=== PATIENT | male | born 1965 | race Caucasian/White ===

== ENCOUNTER 2021-12-22 08:03 | Inpatient (IN) | payer MEDICAID, SELFPAY ==
[2021-12-22] VITALS (26 sets, daily range): BP systolic 100–148; BP diastolic 56–84; PULSE 87–137; RESP 14–22; TEMP 36.2–37.2; O2SAT 92–98; BMI 29.2
[2021-12-22] MEDS: sodium chloride 0.9% 1,000 ML 999 ML IV (08:35)
--- NOTE | 2021-12-22 08:36 | CT_ITS ---
WS: [id number] CT ABDOMEN AND PELVIS WITH CONTRAST HISTORY: Low abdominal pain, nausea, vomiting and diarrhea for 3 days. TECHNIQUE: Imaging performed of the abdomen and pelvis with IV contrast. Single phase imaging of the abdomen. Coronal and sagittal reformats are submitted. All CT scans at [facility] use at [address] one of these dose optimization techniques: automated exposure control; mA and/or kV adjustment per patient size (includes targeted exams where dose is matched to clinical indication); or iterative re construction. IV CONTRAST: Omnipaque 350; 100 mL IV. Oral contrast: No DLP: 633.96 mGy.cm COMPARISON: None available. Lower thorax: Hyperexpanded lungs with emphysema. Heart is normal size. Moderate size hiatal hernia. Liver/biliary system: Normal size liver. No bile duct dilatation. Portal vein normally enhancing. Gallbladder: Normally distended gallbladder There is a small stone or polyp or redundant fold involving the base of the gallbladder. Pancreas: Normal size pancreas and pancreatic duct. No adjacent inflammation. Spleen: 13.1 cm in length. No mass. Adrenal glands: Normal. Right kidney: Normal. Left kidney: Normal. Aorta: Mild atherosclerosis with no aneurysm. SMA and celiac axis are patent. Lymphadenopathy: Small shoddy retroperitoneal lymph nodes. Free fluid: Small amount of free fluid adjacent to the liver and spleen and extending along the parac olic gutters into the pelvis. GI tract: Moderately well distended stomach. There is no small bowel obstruction. There is high densi ty contrast within the GI tract which may be medicinal. Extensive distal sigmoid wall thickening with numerous diverticula. Edematous changes and findings of acute diverticulitis. Focal perforation note d along the medial sigmoid colon. There is an air tract extending through the mucosa and submucosa of the sigmoid. Phlegmonous collection containing air measures 6.5 x 4.3 cm in the pelvis. This is just medial to the sigmoid colon. This is surrounded by small bowel, sigmoid colon and partially encased by the urinary bladder. There is extensive soft tissue inflammation in the pelvis surrounding the sma ll bowel and colon. The inflammatory changes extend to involve the distal small bowel. This is probab ly secondary reaction to the inflammation and phlegmon. Additional hyperemic changes involving the s mall bowel. May be a secondary enteritis. Ischemic changes also should be considered. Similar finding s in the ascending colon. Appendix is not identified. Abdominal wall: Unremarkable abdominal wall. No hernia. Pelvis: Small amount of free fluid in the pelvis. Extensive inflammatory changes within the soft tiss ues of the pelvis surrounding the GI tract. Bones: Unremarkable. CT/CT abdomen pelvis w con* [id number] IMPRESSION: 1. Severe acute sigmoid diverticulitis with a focal perforation along the medi al sigmoid. There is an adjacent phlegmon along the medial sigmoid colon at the level of the perforation containing air. No abscess at this time. 2. There is small foci of air along the lateral sigmoid which may be free air or air within diverticula. These foci of air are also within the segment of acu te diverticulitis. 3. There is extensive hyperemic changes involving large portions of the distal small bowel and the colon. Probably reactive from inflammatory process and sig moid diverticula perforation. 4. Small amount of ascites throughout the abdomen and pelvis. 5. Bladder wall thickening, probably reactive from the adjacent interloop deve loping abscess. 6. The appendix is not definitely identified. Could be secondarily involved. Notified Obi Brandon DO at 12/22/2021 9:32 AM.
[2021-12-22 08:40] LABS: Basophils % 0.2 %; Hematocrit 43.8 % (42.0-52.0); Hemoglobin 15.4 g/dL (11.7-16.6); Lymphocytes # 0.7 10^3/uL (0.8-4.8); Lymphocytes % 5.8 %; Mean Corpuscular HGB Conc 35.2 g/dL (30.0-36.0); Mean Corpuscular Hemoglobin 30.1 pg (28.0-34.0); Mean Corpuscular Volume 85.5 fl (80-94); Mean Platelet Volume 9.7 fL (7.4-10.4); Monocytes # 0.6 10^3/uL (0.2-0.9); Monocytes % 4.5 %; Neutrophils # 11.12 10^3/uL (1.8-7.7); Neutrophils % 88.6 %; Nucleated Red Blood Cells % 0 %; Platelet Count 185 10^3/cmm (130-400); Red Blood Count 5.12 10^6/uL (4.1-5.3); Red Cell Distribution Width 13.2 % (12.1-15.1); White Blood Count 12.6 10^3/uL (4.0-10.0)
[2021-12-22] MEDS: iohexol 350 mg/mL 100 mL Btl IV (08:47)
--- NOTE | 2021-12-22 08:55 | W.ED.ABDPA2 ---
HPI - Abdominal Pain General: Chief Complaint: Abdominal Pain Stated Complaint: N/V abd pain Time Seen by Provider: 12/22/21 08:15 Source: patient Mode of arrival: ambulatory History of Present Illness: 56-year-old male presents emergency room with complaints of abdominal pain that began 2 days ago progressively worsening worse with any kind of movement he localizes all the pain to the right lower quadrant has not had any vomiting but very nauseous he has had some loose stools he is tried some Pepto-Bismol for which she is noted to turn the stools black but is not had any hematemesis or coffee-ground emesis that is identified. He denies fever sweats or chills. No previous abdominal surgeries no significant past medical issues. MD elicited complaint: abdominal pain Pertinent past history: none Onset (ago): day(s) (2) Pain Consistency: constant Location: RLQ Severity: severe Quality: sharp Radiation: none Migration to: no migration Exacerbating factors: movement Relieving factors: rest Associated Symptoms: Reports GI cramping, diarrhea and poor appetite; Denies anorexia, belching, bloating, change in bowel habits, change in stool character, chills, coffee ground emesis, constipation, dyspepsia, dysuria, excessive flatus, fever(s), heartburn, hematochezia, hematuria, hematemesis, fecal incontinence, loose stools, melena, nausea, syncope and vomiting Review of Systems Const: Denies: fever(s) or chills Card: Denies: chest pain, palpitations, irregular heart rhythm or syncope GI: Reports: abdominal pain, diarrhea and GI cramping; Denies: nausea, vomiting, hematemesis, coffee ground emesis, heartburn, constipation, bloating, belching, excessive flatus, fecal incontinence, change in bowel habits, change in stool character, hematochezia or melena : Denies: flank pain, difficulty urinating, dysuria, urinary frequency, urinary urgency or hematuria PFSH ED PFSH: Surgical History (Updated 12/22/21 @ 09:01 by Obi Brandon DO) No pertinent past surgical history Social History Smoking and tobacco status: current every day smoker Physical Exam Const: GENERAL APPEARANCE: cooperative and comfortable ORIENTATION/CONSCIOUSNESS: Yes awake, Yes oriented to person, Yes oriented to place and Yes oriented to time HENMT: COMMON NORMALS: normocephalic, atraumatic and hearing grossly normal bilaterally HEAD & SCALP: normocephalic and atraumatic Lymph: LYMPHATIC: no lymphadenopathy noted and no lymphedema noted Resp: COMMON NORMALS: normal respiratory effort, No retractions, No use of accessory muscles and clear to auscultation bilaterally AUSCULTATION: clear to auscultation bilaterally Cardio: COMMON NORMALS: regular rate, regular rhythm and No murmurs present (Cardio) RATE: regular rate RHYTHM: regular rhythm GI: COMMON NORMALS: No hepatosplenomegaly present AUSCULTATION: Yes normoactive bowel sounds PALPATION: Yes Tenderness to palpation present (GI), Yes Guarding due to palpation present (GI) in the RLQ and Yes No hepatosplenomegaly present Extremity: COMMON NORMALS: normal to inspection, capillary refill normal, no clubbing, cyanosis or edema, no calf tenderness and no pedal edema Neuro: SENSORIUM/ORIENTATION: Yes oriented to person, Yes oriented to place and Yes oriented to time Skin: COMMON NORMALS: no rashes or lesions noted GENERAL SKIN EXAM: no rashes or lesions noted Course Vital Signs: Vital signs: Vital Signs Temperature 98.0 F 12/22/21 08:23 Pulse Rate 128 H 12/22/21 09:45 Respiratory Rate 21 H 12/22/21 09:59 Blood Pressure 100/83 12/22/21 09:45 Pulse Oximetry 95 12/22/21 09:45 Oxygen Delivery Me thod 12/22/21 08:23 MDM - Abdominal Pain Medical Decision Making Patient has perforated sigmoid diverticulitis. It is acute abdomen with peritonitis. Discussed with on-call surgery. I have started Zosyn Dr. Mays asked that we add metronidazole which we have ordered. He is tachycardic and mildly hypotensive he has been given a sepsis fluid bolus along with the antibiotics he is currently awake and alert. Surgery has come to take him to the operating room Dr. Mays will see him in preop. Medical Records I reviewed the patient's medical records. Lab Data I reviewed the patient's lab results. : 12/22/21 08:30 12/22/21 08:30 Labs/Radiology: Radiology Impressions Abdomen/Pelvis CT 12/22/21 08:36 IMPRESSION: 1. Severe acute sigmoid diverticulitis with a focal perforation along the medial sigmoid. There is an adjacent phlegmon along the medial sigmoid colon at the level of the perforation containing air. No abscess at this time. 2. There is small foci of air along the lateral sigmoid which may be free air or air within diverticula. These foci of air are also within the segment of acute diverticulitis. 3. There is extensive hyperemic changes involving large portions of the distal small bowel and the colon. Probably reactive from inflammatory process and sigmoid diverticula perforation. 4. Small amount of ascites throughout the abdomen and pelvis. 5. Bladder wall thickening, probably reactive from the adjacent interloop developing abscess. 6. The appendix is not definitely identified. Could be secondarily involved. Notified Obi Brandon DO at 12/22/2021 9:32 AM. Laboratory Results WBC 12.6 10^3/uL (4.0-10.0) H 12/22/21 08:30 RBC 5.12 10^6/uL (4.1-5.3) 12/22/21 08:30 Hgb 15.4 g/dL (11.7-16.6) 12/22/21 08:30 Hct 43.8 % (42.0-52.0) 12/22/21 08:30 MCV 85.5 fl (80-94) 12/22/21 08:30 MCH 30.1 pg (28.0-34.0) 12/22/21 08:30 MCHC 35.2 g/dL (30.0-36.0) 12/22/21 08:30 RDW 13.2 % (12.1-15.1) 12/22/21 08:30 Plt Count 185 10^3/cmm (130-400) 12/22/21 08:30 MPV 9.7 fL (7.4-10.4) 12/22/21 08:30 Neut % (Auto) 88.6 % 12/22/21 08:30 Lymph % (Auto) 5.8 % 12/22/21 08:30 [place] % (Auto) 4.5 % 12/22/21 08:30 Eos % (Auto) 0.0 % 12/22/21 08:30 Baso % (Auto) 0.2 % 12/22/21 08:30 Neut # (Auto) 11.12 10^3/uL (1.8-7.7) H 12/22/21 08:30 Lymph # (Auto) 0.7 10^3/uL (0.8-4.8) L 12/22/21 08:30 [place] # (Auto) 0.6 10^3/uL (0.2-0.9) 12/22/21 08:30 Eos # (Auto) 0.0 10^3/uL (0.0-0.8) 12/22/21 08:30 Baso # (Auto) 0.0 10^3/uL (0.0-0.1) 12/22/21 08:30 Nucleated RBC % (auto) 0 % 12/22/21 08:30 Nucleated RBCs # 0.0 /100WBC 12/22/21 08:30 Sodium 136 mmol/L (136-145) 12/22/21 08:30 Potassium 3.7 mmol/L (3.5-5.1) 12/22/21 08:30 Chloride 97 mmol/L (98-107) L 12/22/21 08:30 Carbon Dioxide 26 mmol/L (22-29) 12/22/21 08:30 Anion Gap 16.7 (5-19) 12/22/21 08:30 BUN 12 mg/dL (6-20) 12/22/21 08:30 Creatinine 1.0 mg/dL (0.7-1.2) 12/22/21 08:30 GFR Calculation 77.3 mL/min (90-130) L 12/22/21 08:30 Glucose 154 mg/dL (65-115) H 12/22/21 08:30 Calculated Osmolality 285 mOsm/kg (285-295) 12/22/21 08:30 Calcium 8.7 mg/dL (8.5-10.5) 12/22/21 08:30 Total Bilirubin 0.9 mg/dL (0.15-1.2) 12/22/21 08:30 AST 34 U/L (0-40) 12/22/21 08:30 ALT 21 U/L (0-41) 12/22/21 08:30 Alkaline Phosphatase 77 U/L (40-130) 12/22/21 08:30 Total Protein 6.5 g/dL (6.6-8.7) L 12/22/21 08:30 Albumin 4.1 g/dL (3.5-5.2) 12/22/21 08:30 Globulin 2.4 g/dL (1.3-4.6) 12/22/21 08:30 Lipase 10 U/L (13-60) L 12/22/21 08:30 Urine Color Yellow (Yellow) 12/22/21 09:30 Urine Appearance Clear (CLEAR) 12/22/21 09:30 Urine pH 5 (5-7) 12/22/21 09:30 Ur Specific [place] 1.020 (1.005-1.030) 12/22/21 09:30 Urine Protein Neg (Negative) 12/22/21 09:30 Urine Glucose (UA) Norm (Normal) 12/22/21 09:30 Urine Ketones Negative (Negative) 12/22/21 09:30 Urine Blood Neg (Negative) 12/22/21 09:30 Urine Nitrate Negative (Negative) 12/22/21 09:30 Urine Bilirubin Neg (Negative) 12/22/21 09:30 Urine Urobilinogen Norm mg/dL (Negative) 12/22/21 09:30 Ur Leukocyte Esterase Negative (Negative) 12/22/21 09:30 Discharge Plan Discharge Patient Disposition: Admitted As Inpatient Clinical Impression: Diverticulitis of colon with perforation Condition: Stable Coding Level of Care Code ED Buggy Ladle Tender for [place] Fwd Exam Comprehensive
[2021-12-22 09:01] LABS: Alanine Aminotransferase 21 U/L (0-41); Albumin Level 4.1 g/dL (3.5-5.2); Alkaline Phosphatase 77 U/L (40-130); Anion Gap 16.7 (5-19); Aspartate Amino Transferase 34 U/L (0-40); Blood Urea Nitrogen 12 mg/dL (6-20); Calcium 8.7 mg/dL (8.5-10.5); Carbon Dioxide 26 mmol/L (22-29); Chloride 97 mmol/L (98-107); Globulin 2.4 g/dL (1.3-4.6); Glomerular Filtration Rate 77.3 mL/min (90-130); Glucose 154 mg/dL (65-115); Lipase 10 U/L (13-60); Osmolality Calculated 285 mOsm/kg (285-295); Potassium 3.7 mmol/L (3.5-5.1); Sodium 136 mmol/L (136-145); Total Bilirubin 0.9 mg/dL (0.15-1.2); Total Protein 6.5 g/dL (6.6-8.7)
[2021-12-22 09:40] LABS: Add Urine Microscopic? NO; Charge for UA Resulting for Rev
[2021-12-22 09:47] LABS: Urine Color Yellow (Yellow)
[2021-12-22 09:48] LABS: Bilirubin Urine Neg (Negative); Blood Urine Neg (Negative); Glucose Urine UA Norm (Normal); Ketones Urine Negative (Negative); Leukocyte Esterase Urine Negative (Negative); Nitrate Urine Negative (Negative); Protein Urine Neg (Negative); Urine Appearance Clear (CLEAR); Urobilinogen Urine Norm (Negative); pH Urine 5 (5-7)
[2021-12-22] MEDS: piperacillin-tazobactam 4.5 GM in sodium chloride 0.9% (plus) 50 ML IV (09:58)
[2021-12-22] MEDS: morphine 4 mg/mL SDV 1 mL 6 MG IVP (09:59)
[2021-12-22] MEDS: promethazine 25 mg/mL SDV 1 mL IM (09:59)
--- NOTE | 2021-12-22 09:59 | PC.NURSE ---
bedside report given to surgery RN. Patient escorted to surgery by RN. Family at bedside.
[2021-12-22 10:06] LABS: Lactic Sepsis W/Reflex 1.5 mmol/L (0.5-2.2)
--- NOTE | 2021-12-22 10:28 | P.ANESASSM_ITS ---
Pre-Anesthetic Assessment Height/Weight: Height 1.93 m Weight 108.862 kg Temp Pulse Resp BP Pulse Ox O2 Del Method 98.0 F 128 H 21 H 100/83 95 12/22/21 08:23 12/22/21 09:45 12/22/21 09:59 12/22/21 09:45 12/22/21 09:45 12/22/21 08:23 Operation Date: 12/22/21 10:45 Proposed Procedures p Laparoscopy Diagnostic(Not Applicable) - Sreekanth Mays MD Familial anesthetic complications: none Was Beta Mihaela taken within 24 hours: N/A Was Clonidine taken within 24 hours: N/A Last intake: Intake Last Liquid Date 12/22/21 Last Liquid Time 05:00 Last Solid Date 12/21/21 Last Solid Time 17:00 Social Tobacco and No alcohol Exam alert, oriented x 3 and regular rate & rhythm Airway Submandibular: within normal limits Cervical ROM: within normal limits Mallampati: Class II Dentition: chipped Pulmonary Chronic Obstructive Pulmonary Disease GI acute abdomen Anesthetic Plan ASA status: 2E Anesthesia: General (RSI) Medications/Allergies Home Medications Medication Instructions Recorded Confirmed Last Taken Type No Known Home Medications 12/22/21 12/22/21 Unknown History Allergies Allergy/AdvReac Type Severity Reaction Status Date / Time No Known Allergies Allergy Verified 12/22/21 09:36 [facility] Anesthesia Surgical History (Updated 12/22/21 @ 09:01 by Obi Brandon DO) No pertinent past surgical history Social History Smoking and tobacco status: current every day smoker Data Anesthesia : 12/22/21 08:30 12/22/21 08:30 Short CBC 12/22/21 Range/Units 08:30 WBC 12.6 H (4.0-10.0) 10^3/uL Hgb 15.4 (11.7-16.6) g/dL Hct 43.8 (42.0-52.0) % MCV 85.5 (80-94) fl Plt Count 185 (130-400) 10^3/cmm Neut % (Auto) 88.6 % Neut # (Auto) 11.12 H (1.8-7.7) 10^3/uL BMP 12/22/21 08:30 Sodium 136 Potassium 3.7 Chloride 97 L Carbon Dioxide 26 BUN 12 Creatinine 1.0 Glucose 154 H Calcium 8.7 Liver Function 12/22/21 Range/Units 08:30 Total Bilirubin 0.9 (0.15-1.2) mg/dL AST 34 (0-40) U/L ALT 21 (0-41) U/L Alkaline Phosphatase 77 (40-130) U/L Albumin 4.1 (3.5-5.2) g/dL Urine 12/22/21 Range/Units 09:30 Urine Color Yellow (Yellow) Urine Appearance Clear (CLEAR) Urine pH 5 (5-7) Ur Specific [place] 1.020 (1.005-1.030) Urine Protein Neg (Negative) Urine Glucose (UA) Norm (Normal) Urine Ketones Negative (Negative) Urine Nitrate Negative (Negative) Urine Bilirubin Neg (Negative) Ur Leukocyte Esterase Negative (Negative) Microbiology 12/22/21 09:43 Blood Culture - Preliminary Blood SPECIMEN COLLECTED 12/22/21 09:38 Blood Culture - Preliminary Blood SPECIMEN COLLECTED Cardiac Studies: No Data to Display
[2021-12-22] MEDS: metroNIDAZOLE IV 500 MG/100 ML PREMIX 100 MG IV ×2 (10:30→19:15)
[2021-12-22] MEDS: sodium chloride 0.9% 1,000 ML 30 ML IV (10:42)
--- NOTE | 2021-12-22 10:44 | PM.HP ---
Providers/Chief Complaint Admitting Physician: Sreekanth Mays MD Primary Care Provider: YVAN Davey Chief Complaint: N/V/D abd pain History of Present Illness Mr. Stephen Izquierdo is a pleasant 56 year old male resents to the emergency department with worsening abdominal pain since last Wednesday, being sharp in nature mostly towards the lower abdomen. No nausea or vomiting or fevers or chills or jaundice. Nothing seems to make it better except morphine when he was given in the ER. Otherwise pain has been getting worse and when he came to the ER further work-up was done that did show WBC count of 12.6, hemoglobin 15.4 and hematocrit 43.8. Actiq acid 1.5. Lecture lites are normal. Except for chloride 97. Albumin 4.1. Patient undergone a CT of the pelvis that did show 1.? Severe acute sigmoid diverticulitis with a focal perforation along the medial sigmoid. There is an adjacent phlegmon along the medial sigmoid colon at the level of the perforation containing air. No abscess at this time. 2.? There is small foci of air along the lateral sigmoid which may be free air or air within diverticula. These foci of air are also within the segment of acute diverticulitis. 3.? There is extensive hyperemic changes involving large portions of the distal small bowel and the colon. Probably reactive from inflammatory process and sigmoid diverticula perforation. 4.? Small amount of ascites throughout the abdomen and pelvis. 5.? Bladder wall thickening, probably reactive from the adjacent interloop developing abscess. 6.? The appendix is not definitely identified. Could be secondarily involved. Never had a colonoscopy before. General surgery was consulted for further evaluation management Review of Systems General: Reports: 10 or more systems reviewed and unremarkable except in HPI and below Medications/Allergies Home Medications Medication Instructions Recorded Confirmed Last Taken Type No Known Home Medications 12/22/21 12/22/21 Unknown History Allergies Allergy/AdvReac Type Severity Reaction Status Date / Time No Known Allergies Allergy Verified 12/22/21 10:52 PFSH Acute PFSH: Surgical History No pertinent past surgical history Social History Smoking and tobacco status: current every day smoker Vitals/I&O/Wt Last Vital Signs Temp 98.9 F 12/22/21 10:10 Pulse 137 H 12/22/21 10:10 Resp 20 H 12/22/21 10:10 BP 148/69 12/22/21 10:10 Pulse Ox 95 12/22/21 10:10 O2 Del Method 12/22/21 10:10 12/21/21 12/22/21 12/22/21 22:59 06:59 14:59 Intake Total 1050 / 1050 Balance 1050 / 1050 Weight last 48 hrs Weight 240 lb Physical Exam Narrative: Patient is conscious alert oriented X3 No apparent distress BMI 29.2 Head and neck examination PERRLA no masses no cervical lymphadenopathy no jaundice Cardiac examination audible S1-S2 no murmurs no gallops no arrhythmias Chest is clear bilateral,abscence of Rhonchi or wheezes,no surgical emphysema Abdomen tender nondistended soft no organomegaly presence of guarding and rigiditis w signs of peritonitis particularly the lower abdomen Extremities no cyanosis no clubbing no edema Data : 12/22/21 08:30 12/22/21 08:30 Micro: Microbiology 12/22/21 09:43 Blood Culture - Preliminary Blood SPECIMEN COLLECTED 12/22/21 09:38 Blood Culture - Preliminary Blood SPECIMEN COLLECTED A&P Assessment and plan (1) Diverticulitis of colon with perforation: After thorough history physical examination and reviewing the chart and images with my personal interpretation.I counseled the patient for diagnostic laparoscopy possible laparotomy with bowel resection and possible colostomy. Details and risks of the procedure were carefully and openly discussed. Risks reviewed include the possibility of , stroke, heart attack, major bleeding, infection, pneumonia, organ failure, failure to benefit, prolonged hospital stay, pain after the procedure, may require future surgeries. Also indications, risks including but not limited to potential injury of viscera, vascular structures and/or ureters that may require conversion to open,benefits,indications and alternatives were all discussed with the patient, patient understands and is interested to proceed. Rationale was carefully and clearly discussed with the patient.Appropriate informed consent have been reviewed and signed. Attestations Medical Necessity Statement*: Patient requiring inpatient hospitalization passing 2 midnight Coding Level of Care Code Acute Surveying Or Spatial Science Technician for [facility] Diagnoses Diverticulitis of colon with perforation K57.20
[2021-12-22] MEDS: heparin 5,000 unit/mL INJ 1 mL 2000 UNIT SUBCUT (11:09)
[2021-12-22] MEDS: acetaminophen 1,000 MG/100 ML PIGGYBACK 400 MG IV (11:09)
[2021-12-22] MEDS: lidocaine 1% INJ 20 mL 10 ML SUBCUT (11:41)
--- NOTE | 2021-12-22 14:34 | P.OP_ITS ---
Operative Report Date of procedure: December 22, 2021 Pre-op diagnosis: Preop Diagnosis Sigmoid diverticulitis with perforation Procedure done: Diagnostic laparoscopy w sigmoid colon resection and colostomy. Fontenot's procedure Peritoneal lavage Repair of umbilical hernia Implants: 19 Stateless round Clifford drain Specimens removed/disposition: Umbilical hernia content Sigmoid colon resection sutures marked proximal Staple line Surgeon: Sreekanth Mays MD Registered Nurse Surgical Services: Surgical techs Ana and Antonina/Lavelle Circulating nurses Jesusita Ly and Kylee Delatorre Anesthesia: General (MADDIE Breen and Jefry) Estimated blood loss (mL): 25 IV fluids (mL): 1,400 IV fluids: 100 mL 25% albumin Urine output (mL): 270 Procedure: The patient was brought to the operating room and was placed in a supine position on the operating room table.General endotracheal anesthesia was induced.Time-out was done verifying the patient's name/date of /planned procedure and destination after the procedure, all were in agreement. SCDs confirmed to be functioning, preoperative antibiotics administered per protocol, and beta becky protocol was confirmed.Patient was appropriately secured to the table. Vu catheter was inserted revealing clear urine. The abdomen was prepped and draped in a sterile fashion. Started by longitudinal skin incision , small umbilical hernia preperitoneal fat was dissected and excised and sent for permanent pathology following that a Floers trocar technique safe entry to the abdominal cavity was achieved verified by using 10 mm zero degree laparoscopy, switched to a 30? scope, a 5 mm trocar was inserted at the right lower direct visualization, followed by a 5 mm trocar was inserted at the right upper quadrant under direct visualization. I had the patient in Trendelenburg and right side down to help exposure. Noticed to have right paracolic gutter purulent fluid as well as in the pelvic and the left paracolic gutter. Suction irrigation was applied. Inter small bowel loops fluid collection was appreciated but there was no evidence of succus or feculent material. Some lower intra-abdominal adhesions were adhesio lysed using Voyant device under direct visualization. Noticed that the patient has redundant sigmoid that was mobilized from the lateral pelvic wall through the line of Toldt. After further dissection patient was found to have a sealed perforated mid sigmoid colon by the surrounding appendices epiploicoe was appreciated with extensive inflamed sigmoid colon, decision was to perform sigmoid resection and Fontenot's procedure. Perforation estimated to be about centimeter or less in diameter. Using Voyant device I was able to take mesentery of the sigmoid colon down y et.the named vessels I elected to use white load 60 mm [place] stapler and 10 mm clips were applied as well. Appropriate orientation of retroperitoneal structures were appreciated avoiding any injury to the ureters. Mesenteric window was created using the Voyant device and an [place] 60 mm green load stapler was used to divide and creating Fontenot's pouch, before that the right lower 5 mm trocar was replaced by 12 mm trocar to allow the [place] 60 mm stapler to be introduced to the abdominal cavity and a distal sigmoid colon stapled off. Under direct visualization 2-0 Prolene was applied onto the rectal stump for future orientation. There was enough portion of the distal descending colon to create a tension-free colostomy. PDS sutures were applied to close the fascial defects using the fascial closure device. A final look laparoscopy showed no bleeding or injuries.,Suction irrigation was obtained. And hemostasis was secured. At that point a decision was done for the future stoma site at the left side of the abdomen and a skin incision was then created,dissection was carried all the way subcutaneous tissues and muscle layer, the site was wide enough to accommodate my 2 examining fingers, at that point the distal part of the descending colon was retrieved without tension via that site after application of wound protector. Division towards the proximal sigmoid colon was done using a blue load of the [place] 60 mm. And then passed to the wash driller nurse for permanent pathology with sutures marked proximal. A curved Bey was used to take the staple line off the colostomy passed to the circulating nurse for permanent pathology .At this point a 2/0 Vicryl was used circumferentially to maintain the colostomy in good position and created to the underlying fascia.I used 3-0 Vicryl at the 4 poles of the colostomy ,stitch was placed in the mucosa then seromuscular and then subdermal layer at the 4 poles,followed by interrupted sutures between the mucosa and the subdermal layer. Final look laparoscopy was achieved and copious and thorough irrigation(peritoneal lavage) using at least 5 L of warm was done followed by placement of 19 Stateless round Clifford drain towards the pelvis under direct visualization and brought about from the right upper quadrant 5 mm trocar. And anchored to the skin using 2-0 nylon. Approximation of the edges of the peritoneum laparoscopically using 2-0 Vicryl was done around the stoma site to prevent potential parastomal hernia in the future. Gas was allowed to deflate An ostomy appliance was applied now. Count of sponges, needles and instruments were completed at the end of the procedure.Patient was taken to the recovery area in stable condition after being extubated. Vu catheter was kept I was present for the whole entire procedure.
--- NOTE | 2021-12-22 16:06 | ANE.PACU2 ---
Inpatient post-anesthesia follow up: Airway intact: Yes Vital signs: Temperature 97.2 F Pulse Rate 99 Respiratory Rate 18 Blood Pressure 126/70 Pulse Oximetry 97 Oxygen Delivery Me thod Nasal Cannula Oxygen Flow Rate 2 Fraction of Inspir ed Oxygen Hydration adequate: Yes Nausea and vomiting: No Pain level: 4 Mental status: Baseline
[2021-12-22] MEDS: piperacillin-tazobactam 3.375 GM in sodium chloride 0.9% (plus) 50 ML IV ×2 (17:15→23:40)
[2021-12-22] MEDS: sodium chloride 0.9% 1,000 ML 125 ML IV (17:15)
[2021-12-22] MEDS: famotidine 20 mg/2 mL INJ IVP (20:39)
[2021-12-22] MEDS: morphine 4 mg/mL SDV 1 mL 2 MG IVP (23:47)
[2021-12-23] VITALS (16 sets, daily range): BP systolic 122–166; BP diastolic 72–82; PULSE 88–118; RESP 16–18; TEMP 36.7–37.3; O2SAT 91–94
[2021-12-23] MEDS: sodium chloride 0.9% 1,000 ML 125 ML IV ×3 (01:32→19:47)
[2021-12-23 03:42] LABS: Basophils % 0.2 %; Hematocrit 37.5 % (42.0-52.0); Hemoglobin 12.7 g/dL (11.7-16.6); Lymphocytes # 0.7 10^3/uL (0.8-4.8); Lymphocytes % 6.2 %; Mean Corpuscular HGB Conc 33.9 g/dL (30.0-36.0); Mean Corpuscular Hemoglobin 29.2 pg (28.0-34.0); Mean Corpuscular Volume 86.2 fl (80-94); Mean Platelet Volume 10.4 fL (7.4-10.4); Monocytes # 0.8 10^3/uL (0.2-0.9); Monocytes % 7.2 %; Neutrophils # 9.88 10^3/uL (1.8-7.7); Neutrophils % 85.6 %; Nucleated Red Blood Cells % 0 %; Platelet Count 166 10^3/cmm (130-400); Red Blood Count 4.35 10^6/uL (4.1-5.3); Red Cell Distribution Width 13.5 % (12.1-15.1); White Blood Count 11.5 10^3/uL (4.0-10.0)
[2021-12-23] MEDS: metroNIDAZOLE IV 500 MG/100 ML PREMIX 100 MG IV (03:43)
[2021-12-23] MEDS: morphine 4 mg/mL SDV 1 mL 2 MG IVP ×4 (03:50→15:39)
[2021-12-23 04:06] LABS: Anion Gap 13.9 (5-19); Blood Urea Nitrogen 11 mg/dL (6-20); Calcium 7.7 mg/dL (8.5-10.5); Carbon Dioxide 22 mmol/L (22-29); Chloride 102 mmol/L (98-107); Glucose 127 mg/dL (65-115); Osmolality Calculated 279 mOsm/kg (285-295); Potassium 3.9 mmol/L (3.5-5.1); Sodium 134 mmol/L (136-145)
[2021-12-23] MEDS: heparin 5,000 unit/mL INJ 1 mL 5000 UNIT SUBCUT ×3 (05:45→22:12)
--- NOTE | 2021-12-23 06:28 | P.PN_ITS ---
Subjective Subjective: Patient overall doing well. Pain is under control and has adequate urine output. No acute events overnight Vitals/I&O/Wt Last Vital Signs Temp 98.4 F 12/23/21 04:00 Pulse 91 12/23/21 04:00 Resp 16 12/23/21 04:00 BP 133/77 12/23/21 04:00 Pulse Ox 91 12/23/21 04:00 O2 Del Method 12/22/21 20:00 O2 Flow Rate 2 12/22/21 15:26 12/22/21 12/22/21 12/23/21 14:59 22:59 06:59 Intake Total 1550 / 1550 250 / 1800 1150 / 2950 Output Total 565 / 565 125 / 690 1025 / 1715 Balance 985 / 985 125 / 1110 125 / 1235 Weight last 48 hrs Weight 240 lb Physical Exam Narrative: Patient is conscious alert oriented X3 No apparent distress BMI 29.2 Head and neck examination PERRLA no masses no cervical lymphadenopathy no jaundice Abdomen nontender except mildly at the incision site nondistended soft no organomegaly guarding or rigidity/no signs of peritonitis/right upper quadrant drain with serosanguineous output. Colostomy is pink with mild serous output Vu catheter in place with clear Extremities no cyanosis no clubbing no edema Urinary Catheter Management: Vu: Cath Placed During This Visit: yes Reason for Continuing Indwelling Catheter: Accurate Measurement of Urinary Out put in Critically Ill Patients Urinary Catheter Date of Insertion: 12/22/21 Urinary Catheter Time of Insertion: 11:20 Data : 12/23/21 10:00 12/23/21 10:00 Micro: Microbiology 12/22/21 09:43 Blood Culture - Preliminary Blood SPECIMEN COLLECTED 12/22/21 09:38 Blood Culture - Preliminary Blood SPECIMEN COLLECTED A&P Assessment and plan (1) Status post Krystin's procedure: Assessment 56 years old gentleman status post laparoscopic Fontenot's procedure 12/23/2011 Plan N.p.o. except for swabs Continue IV fluid resuscitation Incentive spirometer every hour Encourage ambulation Replacement of calcium Continue IV antimicrobial therapy Continue pharmacologic DVT prophylaxis With plan to DC Vu catheter later today depends on urine output Assurance and education All questions have been answered and all concerns have been addressed to patient's satisfaction. Attestations Medical Necessity Statement*: Patient requiring inpatient hospitalization passing 2 midnights for perioperative care and resuming bowel function Time Spent in Patient Care: 16 - 35 minutes Coding Level of Care Code Acute Apparatus Operator for Chg Fwd Diagnoses Status post Krystin's procedure Z93.3
[2021-12-23] MEDS: calcium gluconate 0.9% NaCL 1 GM/50 ML PREMIX IV ×2 (08:23→11:08)
[2021-12-23] MEDS: famotidine 20 mg/2 mL INJ IVP ×2 (09:51→19:48)
[2021-12-23] MEDS: piperacillin-tazobactam 3.375 GM in sodium chloride 0.9% (plus) 50 ML IV ×2 (09:51→15:41)
[2021-12-23 10:19] LABS: Basophils % 0.2 %; Hematocrit 39.5 % (42.0-52.0); Hemoglobin 13.6 g/dL (11.7-16.6); Lymphocytes # 0.8 10^3/uL (0.8-4.8); Lymphocytes % 6.2 %; Mean Corpuscular HGB Conc 34.4 g/dL (30.0-36.0); Mean Corpuscular Hemoglobin 29.8 pg (28.0-34.0); Mean Corpuscular Volume 86.4 fl (80-94); Mean Platelet Volume 9.9 fL (7.4-10.4); Monocytes # 0.8 10^3/uL (0.2-0.9); Monocytes % 6.7 %; Neutrophils # 10.59 10^3/uL (1.8-7.7); Neutrophils % 86.2 %; Nucleated Red Blood Cells % 0 %; Platelet Count 187 10^3/cmm (130-400); Red Blood Count 4.57 10^6/uL (4.1-5.3); Red Cell Distribution Width 13.7 % (12.1-15.1); White Blood Count 12.3 10^3/uL (4.0-10.0)
[2021-12-23 10:34] LABS: Anion Gap 13.8 (5-19); Blood Urea Nitrogen 12 mg/dL (6-20); Calcium 8.6 mg/dL (8.5-10.5); Carbon Dioxide 24 mmol/L (22-29); Chloride 101 mmol/L (98-107); Glucose 132 mg/dL (65-115); Osmolality Calculated 282 mOsm/kg (285-295); Potassium 3.8 mmol/L (3.5-5.1); Sodium 135 mmol/L (136-145)
--- NOTE | 2021-12-23 11:07 | PC.CHAP ---
Pastoral Care Encounter/Spiritual Assessment Type of Contact [] Declined product test engineer visit [] Patient/Family/Request visit [] Outpatient visit [] Follow-up visit [] Physician referral [] Code/Alert [x] Routine visit [] Staff referral [] Actively dying [] Patient sleeping [] Family support [] [] Out of room [] Palliative care [] [] Receiving care in room [] Pre-surgical visit [] Trauma [] Long length of stay [] ICU visit [] Other: Relational/Emotional Strength []x Patient feels connected with others/family/visitors/staff [] Distress [] Loneliness/isolation [] Abandonment Spirituality of Patient [x] Person of Daylin [] Attends Roman Catholic of their Daylin [x] Believes in Prayer [] Reads Bible or Sabianist materials [] There are Spiritual issues to be addressed Rubber Compounder Supervisor Interventions [x] Prayer [x] Active listening [x] Non-anxious presence [x] Spiritual/emotional support [] Crisis/trauma care [] Spiritual counseling [] Bereavement support [] Provided bereavement packet [] Provided Bible/devotional materials [] Provided toy/stuffed animal, coloring book to patient or family member [] Provided Communion [] Anointing/[place] [] Salvation [x] Completed spiritual assessment [] Other: Impact on Illness or Injury [] Angry [] Fearful [] Anxious [] Often cries [] Exhaustion [] Unable to work [] Unable to attend cheondoism [] Unable to walk/stand [] Unable to read [] Unable to drive [] Unable to eat/drink [] Unable to sleep [] Unable to be with family [] Patient intubated [] Other: Summary Time spent with patient 15 min
[2021-12-24] VITALS (12 sets, daily range): BP systolic 134–156; BP diastolic 72–82; PULSE 87–106; RESP 17–18; TEMP 36.7–37.3; O2SAT 92–98
[2021-12-24] MEDS: piperacillin-tazobactam 3.375 GM in sodium chloride 0.9% (plus) 50 ML IV ×4 (00:20→23:13)
[2021-12-24] MEDS: morphine 4 mg/mL SDV 1 mL 2 MG IVP ×2 (02:29→22:59)
[2021-12-24] MEDS: sodium chloride 0.9% 1,000 ML 125 ML IV ×3 (03:47→21:13)
[2021-12-24] MEDS: heparin 5,000 unit/mL INJ 1 mL 5000 UNIT SUBCUT ×3 (05:40→21:11)
--- NOTE | 2021-12-24 07:44 | P.PN_ITS ---
Subjective Subjective: Patient overall feels overall better today. Did not pass gas yet. Less drainage per abdominal drain. Concentrated urine output. Medications: Reviewed: Yes Vitals/I&O/Wt Last Vital Signs Temp 98.5 F 12/24/21 07:33 Pulse 106 H 12/24/21 07:33 Resp 18 12/24/21 07:33 BP 151/82 12/24/21 07:33 Pulse Ox 94 12/24/21 07:33 O2 Del Method 12/24/21 07:33 O2 Flow Rate 0 12/23/21 15:33 12/23/21 12/24/21 12/24/21 22:59 06:59 14:59 Intake Total 1150 / 2200 1050 / 3250 Output Total 480 / 880 525 / 1405 Balance 670 / 1320 525 / 1845 Weight last 48 hrs Weight 240 lb Physical Exam Narrative: Patient is conscious alert oriented X3 No apparent distress BMI 29.2 Head and neck examination PERRLA no masses no cervical lymphadenopathy no jaundice Abdomen nontender except mildly at the incision site nondistended soft no or ganomegaly guarding or rigidity/no signs of peritonitis/right upper quadrant drain with serosanguineous output. Colostomy is pink with mild serous output Vu catheter in place with clear Extremities no cyanosis no clubbing no edema Urinary Catheter Management: Vu: Cath Placed During This Visit: yes, but has since been removed by the nurse Reason for Continuing Indwelling Catheter: Not indwelling catheter Urinary Catheter Date of Insertion: 12/22/21 Urinary Catheter Time of Insertion: 11:20 Date Urinary Catheter Removed: 12/23/21 Data : 12/23/21 10:00 12/23/21 10:00 Micro: Microbiology 12/22/21 09:38 Blood Culture - Preliminary Blood 12/22/21 09:43 Blood Culture - Preliminary Blood A&P Assessment and plan (1) Status post Krystin's procedure: Assessment 56 years old gentleman status post laparoscopic Fontenot's procedure 12/23/2011 Plan We will start the patient slowly on popsicles and ice chips Nebs every 6 hours as needed 500 mL of normal saline bolus Encourage ambulation Continue IV antimicrobial therapy Continue pharmacologic DVT prophylaxis Follow on final blood cultures Follow on a.m. labs Assurance and education All questions have been answered and all concerns have been addressed to patient's satisfaction. Attestations Medical Necessity Statement*: Patient requiring inpatient hospitalization passing 2 midnights, awaiting bowel functions. Coding Level of Care Code Acute Mechanical Technologist for Chg Fwd Diagnoses Status post Krystin's procedure Z93.3
[2021-12-24] MEDS: ipratropium-albuterol 3 mL Neb INHALATION (08:19)
[2021-12-24] MEDS: famotidine 20 mg/2 mL INJ IVP ×2 (08:29→21:06)
[2021-12-24] MEDS: sodium chloride 0.9% 500 ML IV (09:18)
[2021-12-24 16:33] LABS: Basophils % 0.4 %; Eosinophils % 0.4 %; Hematocrit 35.5 % (42.0-52.0); Hemoglobin 12.3 g/dL (11.7-16.6); Lymphocytes # 0.8 10^3/uL (0.8-4.8); Lymphocytes % 12.2 %; Mean Corpuscular HGB Conc 34.6 g/dL (30.0-36.0); Mean Corpuscular Hemoglobin 29.8 pg (28.0-34.0); Mean Platelet Volume 10.1 fL (7.4-10.4); Monocytes # 0.6 10^3/uL (0.2-0.9); Monocytes % 9.4 %; Neutrophils # 5.25 10^3/uL (1.8-7.7); Neutrophils % 77.2 %; Nucleated Red Blood Cells % 0 %; Platelet Count 185 10^3/cmm (130-400); Red Blood Count 4.13 10^6/uL (4.1-5.3); Red Cell Distribution Width 13.3 % (12.1-15.1); White Blood Count 6.8 10^3/uL (4.0-10.0)
[2021-12-24 17:54] LABS: Anion Gap 16.5 (5-19); Blood Urea Nitrogen 10 mg/dL (6-20); Carbon Dioxide 18 mmol/L (22-29); Chloride 106 mmol/L (98-107); Glomerular Filtration Rate 116.7 mL/min (90-130); Glucose 126 mg/dL (65-115); Osmolality Calculated 285 mOsm/kg (285-295); Potassium 3.5 mmol/L (3.5-5.1); Sodium 137 mmol/L (136-145)
--- NOTE | 2021-12-24 18:13 | PC.NURSE ---
PATIENT HAS DONE WELL TODAY. THIS NURSE CHANGED OSTOMY WAFER AND BAG. CURRENTLY SEALED WELL. PATIENT HAS AMBULATED THE HALLS MULTIPLE TIMES TODAY. PATIENT HAS BOWEL SOUNDS, NOT PASSING GAS AT THIS TIME. PATIENT HAS HAD 2 POPSICLES TODAY. GOOD URINE OUTPUT. 10ML OUT OF THE NELLI DRAIN. LINENS CHANGED. CURRENTLY SITTING IN CHAIR VISITING WITH ROOMMATE.
[2021-12-25] VITALS (10 sets, daily range): BP systolic 135–148; BP diastolic 70–79; PULSE 74–100; RESP 15–18; TEMP 36.4–36.8; O2SAT 94–99
[2021-12-25] MEDS: sodium chloride 0.9% 1,000 ML 125 ML IV (04:19)
[2021-12-25] MEDS: heparin 5,000 unit/mL INJ 1 mL 5000 UNIT SUBCUT ×3 (05:03→21:19)
--- NOTE | 2021-12-25 08:31 | P.PN_ITS ---
Subjective Subjective: Patient overall feels better and started passing gas and liquidy stool. No acute events overnight. Adequate urine output. Medications: Reviewed: Yes Vitals/I&O/Wt Last Vital Signs Temp 98.2 F 12/25/21 07:48 Pulse 78 12/25/21 07:48 Resp 16 12/25/21 07:48 BP 144/79 12/25/21 07:48 Pulse Ox 95 12/25/21 07:48 O2 Del Method 12/25/21 07:48 O2 Flow Rate 0 12/24/21 20:00 12/24/21 12/25/21 12/25/21 22:59 06:59 14:59 Intake Total 5311.693 / 6861.693 937.5 / 7799.193 Output Total 310 / 1035 950 / 1985 180 / 180 Balance 5001.693 / 5826.693 -12.5 / 5814.193 -180 / -180 Physical Exam Narrative: Patient is conscious alert oriented X3 No apparent distress BMI 29.2 Head and neck examination PERRLA no masses no cervical lymphadenopathy no jaundice Abdomen nontender except mildly at the incision site nondistended soft no organomegaly guarding or rigidity/no signs of peritonitis/right upper quadrant drain with serosanguineous output. Incisions are clean dry and intact and skin kami in place Colostomy is pink with mild serous output Extremities no cyanosis no clubbing no edema Urinary Catheter Management: Vu: Cath Placed During This Visit: yes, but has since been removed by the nurse Reason for Continuing Indwelling Catheter: Not indwelling catheter Urinary Catheter Date of Insertion: 12/22/21 Urinary Catheter Time of Insertion: 11:20 Date Urinary Catheter Removed: 12/23/21 Data : 12/24/21 16:01 12/24/21 16:01 A&P Assessment and plan (1) Status post Krystin's procedure: Assessment 56 years old gentleman status post laparoscopic Fontenot's procedure 12/23/2011 Plan We will start the patient slowly on clear liquid diet Nebs every 6 hours as needed We will switch fluids to maintenance fluids D5 and half-normal +20 KCl at 75 mL/h Encourage ambulation Continue IV antimicrobial therapy Continue pharmacologic DVT prophylaxis Follow on final blood cultures We will follow on pathology specimen Assurance and education All questions have been answered and all concerns have been addressed to patient's satisfaction. Attestations Medical Necessity Statement*: Patient requiring inpatient hospitalization passing 2 midnights for perioperative care. Coding Level of Care Code Acute Electrical Development Engineer for Chg Fwd Diagnoses Status post Krystin's procedure Z93.3
[2021-12-25] MEDS: famotidine 20 mg/2 mL INJ IVP ×2 (09:37→21:19)
[2021-12-25] MEDS: piperacillin-tazobactam 3.375 GM in sodium chloride 0.9% (plus) 50 ML IV ×2 (09:43→14:59)
[2021-12-25] MEDS: D5-NS 0.45% + KCL 20 mEq 20 MEQ/1,000 ML BAG 75 MEQ IV (09:44)
[2021-12-25] MEDS: ipratropium-albuterol 3 mL Neb INHALATION (11:11)
--- NOTE | 2021-12-25 18:34 | PC.NURSE ---
PATIENT HAS DONE VERY WELL TODAY. AMBULATED THE HALLS MULTIPLE TIMES. HE HAS HAD 430ML OF OUTPUT IN THE NELLI DRAIN. THIS NURSE REDRESSED THE DRAIN SITE. PATIENT HAD 900ML OF URINE OUTPUT. TOLERATING CLEAR LIQUID DIET. PASSING FLATUS AND SMALL AMOUNT OF STOOL AT THIS TIME.
[2021-12-26] VITALS (8 sets, daily range): BP systolic 143–159; BP diastolic 78–91; PULSE 62–85; RESP 16–18; TEMP 36.6–36.9; O2SAT 94–98
[2021-12-26] MEDS: piperacillin-tazobactam 3.375 GM in sodium chloride 0.9% (plus) 50 ML IV ×2 (00:26→08:10)
[2021-12-26] MEDS: HYDROcodone-acetaminophen 5-325 mg Tablet 1 TAB PO (04:17)
[2021-12-26] MEDS: famotidine 20 mg/2 mL INJ IVP (08:10)
--- NOTE | 2021-12-26 10:58 | PC.CHAP ---
Pastoral Care Encounter/Spiritual Assessment Type of Contact [] Declined wire frame lamp shade maker visit [] Patient/Family/Request visit [] Outpatient visit [] Follow-up visit [] Physician referral [] Code/Alert [x] Routine visit [] Staff referral [] Actively dying [] Patient sleeping [] Family support [] [] Out of room [] Palliative care [] [] Receiving care in room [] Pre-surgical visit [] Trauma [] Long length of stay [] ICU visit [] Other: Relational/Emotional Strength [x] Patient feels connected with others/family/visitors/staff [] Distress [] Loneliness/isolation [] Abandonment Spirituality of Patient [x] Person of Daylin [] Attends Amish of their [place] [x] Believes in Prayer [] Reads Bible or Roman Catholic materials [] There are Spiritual issues to be addressed Enrolled Agent Interventions [x] Prayer [] Active listening [] Non-anxious presence [] Spiritual/emotional support [] Crisis/trauma care [] Spiritual counseling [] Bereavement support [] Provided bereavement packet [] Provided Bible/devotional materials [] Provided toy/stuffed animal, coloring book to patient or family member [] Provided Communion [] Anointing/[place] [] Salvation [x] Completed spiritual assessment [] Other: Impact on Illness or Injury [] Angry [] Fearful [] Anxious [] Often cries [] Exhaustion [] Unable to work [] Unable to attend christian [] Unable to walk/stand [] Unable to read [] Unable to drive [] Unable to eat/drink [] Unable to sleep [] Unable to be with family [] Patient intubated [] Other: Summary Time spent with patient 15 min
[2021-12-26] MEDS: heparin 5,000 unit/mL INJ 1 mL 5000 UNIT SUBCUT (15:05)
--- NOTE | 2021-12-26 15:43 | P.DS_ITS ---
Discharge Providers Date of Admission: 12/22/21 14:38 Date of Discharge: December 26, 2021 Attending Provider at Admission: Sreekanth Mays MD Attending Provider at Discharge: Sreekanth Mays MD Primary Care Provider: YVAN Davey Diagnoses at Discharge Discharge Diagnosis (1) Status post Krystin's procedure: Status: Inactive Reason for Visit Reason for Visit: N/V/D abd pain Hospital Course Hospital Course Patient undergone uneventful diagnostic laparoscopy followed by laparoscopic sigmoid colectomy and Fontenot's procedure due to perforated sigmoid colon with extensive inflammatory process and phlegmon formation of the mid sigmoid colon. Patient maintained to have stable vital signs and Vu catheter was taken out and continue to have adequate urine output that required one-time bolus of fluids. Started passing gas and clear liquid diet was ordered as well as protein shakes and patient continued to have passage of gas and stool formation. Patient has been ambulatory and pharmacologic DVT prophylaxis were ordered as well. Was able to void urine after Vu catheter was taken out. Lab work was unremarkable and continue to work on incentive spirometer during his hospital stay and has been ambulatory without assistance. Appropriate education was given to the patient regarding drain and ostomy care as well as supplies were given to the patient. Patient met the appropriate and safe criteria for discharge home and he will be discharged on oral pain medications, antibiotics and instructions about diet. Plan to follow-up as an outpatient with surgery service. Physical Exam Narrative: Patient is conscious alert oriented X3 No apparent distress BMI 29.2 Head and neck examination PERRLA no masses no cervical lymphadenopathy no jaundice Abdomen nontender except mildly at the incision site nondistended soft no organomegaly guarding or rigidity/no signs of peritonitis/right upper quadrant drain with serosanguineous output. Incisions are clean dry and intact and skin kami in place Colostomy is pink with gas and stool Extremities no cyanosis no clubbing no edema Urinary Catheter Management: Vu: Cath Placed During This Visit: yes, but has since been removed by the nurse Reason for Continuing Indwelling Catheter: Not indwelling catheter Urinary Catheter Date of Insertion: 12/22/21 Urinary Catheter Time of Insertion: 11:20 Date Urinary Catheter Removed: 12/23/21 Discharge Data Studies Completed and Pending Completed Studies During Hospitalization Category Date Time Status CT abdomen pelvis w con* [id number] Stat Cat Scan 12/22/21 08:36 Completed Pending at discharge Category Date Time Status Blood Culture Stat Lab 12/22/21 09:43 Results Pathology: Surgical [PTH] Routine Pth 12/22/21 14:57 Received Radiology Impressions Abdomen/Pelvis CT 12/22/21 08:36 IMPRESSION: 1. Severe acute sigmoid diverticulitis with a focal perforation along the medial sigmoid. There is an adjacent phlegmon along the medial sigmoid colon at the level of the perforation containing air. No abscess at this time. 2. There is small foci of air along the lateral sigmoid which may be free air or air within diverticula. These foci of air are also within the segment of acute diverticulitis. 3. There is extensive hyperemic changes involving large portions of the distal small bowel and the colon. Probably reactive from inflammatory process and sigmoid diverticula perforation. 4. Small amount of ascites throughout the abdomen and pelvis. 5. Bladder wall thickening, probably reactive from the adjacent interloop developing abscess. 6. The appendix is not definitely identified. Could be secondarily involved. Notified Obi Brandon DO at 12/22/2021 9:32 AM. Laboratory Results WBC 6.8 10^3/uL (4.0-10.0) 12/24/21 16:01 RBC 4.13 10^6/uL (4.1-5.3) 12/24/21 16:01 Hgb 12.3 g/dL (11.7-16.6) 12/24/21 16:01 Hct 35.5 % (42.0-52.0) L 12/24/21 16:01 MCV 86.0 fl (80-94) 12/24/21 16:01 MCH 29.8 pg (28.0-34.0) 12/24/21 16:01 MCHC 34.6 g/dL (30.0-36.0) 12/24/21 16:01 RDW 13.3 % (12.1-15.1) 12/24/21 16:01 Plt Count 185 10^3/cmm (130-400) 12/24/21 16:01 MPV 10.1 fL (7.4-10.4) 12/24/21 16:01 Neut % (Auto) 77.2 % 12/24/21 16:01 Lymph % (Auto) 12.2 % 12/24/21 16:01 [place] % (Auto) 9.4 % 10/26/22 16:01 Eos % (Auto) 0.4 % 12/24/21 16:01 Baso % (Auto) 0.4 % 12/24/21 16:01 Neut # (Auto) 5.25 10^3/uL (1.8-7.7) 12/24/21 16:01 Lymph # (Auto) 0.8 10^3/uL (0.8-4.8) 12/24/21 16:01 [place] # (Auto) 0.6 10^3/uL (0.2-0.9) 12/24/21 16:01 Eos # (Auto) 0.0 10^3/uL (0.0-0.8) 12/24/21 16:01 Baso # (Auto) 0.0 10^3/uL (0.0-0.1) 12/24/21 16:01 Nucleated RBC % (auto) 0 % 12/24/21 16:01 Nucleated RBCs # 0.0 /100WBC 12/24/21 16:01 Sodium 137 mmol/L (136-145) 12/24/21 16:01 Potassium 3.5 mmol/L (3.5-5.1) 12/24/21 16:01 Chloride 106 mmol/L (98-107) 12/24/21 16:01 Carbon Dioxide 18 mmol/L (22-29) L 12/24/21 16:01 Anion Gap 16.5 (5-19) 12/24/21 16:01 BUN 10 mg/dL (6-20) 12/24/21 16:01 Creatinine 0.7 mg/dL (0.7-1.2) 12/24/21 16:01 GFR Calculation 116.7 mL/min (90-130) 12/24/21 16:01 Glucose 126 mg/dL (65-115) H 12/24/21 16:01 Calculated Osmolality 285 mOsm/kg (285-295) 12/24/21 16:01 Lactic Acid 1.5 mmol/L (0.5-2.2) 12/22/21 09:43 Calcium 8.0 mg/dL (8.5-10.5) L 12/24/21 16:01 Total Bilirubin 0.9 mg/dL (0.15-1.2) 12/22/21 08:30 AST 34 U/L (0-40) 12/22/21 08:30 ALT 21 U/L (0-41) 12/22/21 08:30 Alkaline Phosphatase 77 U/L (40-130) 12/22/21 08:30 Total Protein 6.5 g/dL (6.6-8.7) L 12/22/21 08:30 Albumin 4.1 g/dL (3.5-5.2) 12/22/21 08:30 Globulin 2.4 g/dL (1.3-4.6) 12/22/21 08:30 Lipase 10 U/L (13-60) L 12/22/21 08:30 Urine Color Yellow (Yellow) 12/22/21 09:30 Urine Appearance Clear (CLEAR) 12/22/21 09:30 Urine pH 5 (5-7) 12/22/21 09:30 Ur Specific [place] 1.020 (1.005-1.030) 12/22/21 09:30 Urine Protein Neg (Negative) 12/22/21 09:30 Urine Glucose (UA) Norm (Normal) 12/22/21 09:30 Urine Ketones Negative (Negative) 12/22/21 09:30 Urine Blood Neg (Negative) 12/22/21 09:30 Urine Nitrate Negative (Negative) 12/22/21 09:30 Urine Bilirubin Neg (Negative) 12/22/21 09:30 Urine Urobilinogen Norm mg/dL (Negative) 12/22/21 09:30 Ur Leukocyte Esterase Negative (Negative) 12/22/21 09:30 Procedures Performed Preop Diagnosis ? Sigmoid diverticulitis with perforation ? Procedure done: Diagnostic laparoscopy w sigmoid colon resection and colostomy. Fontenot's procedure Peritoneal lavage Repair of umbilical hernia Implants: 19 Norwegian round Clifford drain Specimens removed/disposition: Umbilical hernia content Sigmoid colon resection sutures marked proximal Staple line Surgeon: Sreekanth Mays MD [employer] Assistant: Surgical techfaby Perez and Antonina/Dayami and Trupti Circulating nurses Jesusita Ly and Kylee Delatorre Anesthesia: General (MADDIE Breen and Jefry) Estimated blood loss (mL): 25 IV fluids (mL): 1,400 IV fluids: 100 mL 25% albumin Urine output (mL): 270 Procedure: The patient was brought to the operating room and was placed in a supine p osition on the operating room table.General endotracheal anesthesia was induced.Time-out was done verifying the patient's name/date of /planned procedure and destination after the procedure, all were in agreement. SCDs confirmed to be functioning, preoperative antibiotics administered per protocol, and beta becky protocol was confirmed.Patient was appropriately secured to the table. Vu catheter was inserted revealing clear urine. The abdomen was prepped and draped in a sterile fashion. Started by longitudinal skin incision , small umbilical hernia preperitoneal fat was dissected and excised and sent for permanent pathology following that a Flores trocar technique safe entry to the abdominal cavity was achieved verified by using 10 mm zero degree laparoscopy, switched to a 30? scope, a 5 mm trocar was inserted at the right lower direct visualization, followed by a 5 mm trocar was inserted at the right upper quadrant under direct visualization. I had the patient in Trendelenburg and right side down to help exposure.? Noticed to have right paracolic gutter purulent fluid as well as in the pelvic and the left paracolic gutter.? Suction irrigation was applied. Inter small vesta wel loops fluid collection was appreciated but there was no evidence of succus or feculent material. Some lower intra-abdominal adhesions were adhesio lysed using Voyant device under direct visualization. Noticed that the patient has redundant sigmoid that was mobilized from the lateral pelvic wall through the line of Toldt. After further dissection patient was found to have a sealed perforated mid sigmoid colon by the surrounding appendices epiploicoe was appreciated with extensive inflamed sigmoid colon, decision was to perform sigmoid resection and Fontenot's procedure. Perforation estimated to be about centimeter or less in diameter. Using? Voyant device I was able to take mesentery of the sigmoid colon down yet.the named vessels I elected to use white load 60 mm Regino Ramirez stapler and 10 mm clips were applied as well.? Appropriate orientation of retroperitoneal structures were appreciated avoiding any injury to the ureters. Mesenteric window was created using the Voyant device and an Regino Ramirez 60 mm green load stapler was used to divide and creating Fontenot's pouch, before that the right lower 5 mm trocar was replaced by 12 mm trocar to allow the Regino Ramirez 60 mm stapler to be introduced to the abdominal cavity and a distal sigmoid colon stapled off. Under direct visualization 2-0 Prolene was applied onto the rectal stump for future orientation. There was enough portion of the distal descending colon to create a tension-free colostomy.? PDS sutures were applied to close the fascial defects using the fascial closure device. A final look laparoscopy showed no bleeding or inj uries.,Suction irrigation was obtained.? And hemostasis was secured. At that point a decision was done for the future stoma site at the left side of the abdomen and a skin incision was then created,dissection was carried all the way subcutaneous tissues and muscle layer, the site was wide enough to accommodate my 2 examining fingers, at that point the distal part of the descending colon was retrieved without tension via that site after application of wound protector.? Division towards the proximal sigmoid colon was done using a blue load of the Regino Ramirez 60 mm.? And then passed to the area counselor nurse for permanent pathology with sutures marked proximal. A curved Bey was used to take the staple line off the colostomy passed to the circulating nurse for permanent pathology .At this point a 2/0 Vicryl was used circumferentially to maintain the colostomy in good position and created to the underlying fascia.I used 3-0 Vicryl at the 4 poles of the colostomy ,stitch was placed in the mucosa then seromuscular and then subdermal layer at the 4 poles,followed? by interrupted sutures between the mucosa and the subdermal layer. Final look laparoscopy was achieved and copious and thorough i rrigation(peritoneal lavage) using at least 5 L of warm was done followed by placement of 19 Norwegian round Clifford drain towards the pelvis under direct visualization and brought about from the right upper quadrant 5 mm trocar.? And anchored to the skin using 2-0 nylon.? Approximation of the edges of the peritoneum laparoscopically using 2-0 Vicryl was done around the stoma site to prevent potential parastomal hernia in the future. Gas was allowed to deflate An ostomy appliance was applied now. Count of sponges, needles and instruments were completed at the end of the procedure.Patient was taken to the recovery area in stable condition after being extubated.? Vu catheter was kept I was present for the whole entire procedure. Dictated By: Sreekanth Mays MD Signed By: Sreekanth Mays Vitals Last Vital Signs Temp 97.8 F 12/26/21 11:52 Pulse 81 12/26/21 11:52 Resp 17 12/26/21 11:52 BP 149/90 12/26/21 11:52 Pulse Ox 96 12/26/21 11:52 O2 Del Method 12/26/21 11:52 O2 Flow Rate 0 12/24/21 20:00 Discharge Plan Discharge Patient Disposition: Home Condition: Stable Prescriptions: New hydrocodone-acetaminophen 5-325 mg tablet 1 tab PO Q6H PRN (Reason: pain) Qty: 28 0RF amoxicillin-pot clavulanate 875-125 mg tablet 1 tab PO Q12H 5 Days Qty: 10 0RF Discharge Orders: Discharge Order (Routine); Ordered 12/26/21 Ordered By: Sreekanth Mays Referrals: Cory Alvarez MD [Physician] - 12/29/21 3:00 pm Sreekanth Mays MD [Physician] - (Return to surgery office in 1 week) Discharge Diet: Advance as tolerated Discharge Activity: Limit activity as instructed Patient Instructions: Hydrocodone/Acetaminophen (By mouth), Amoxicillin/Clavulanate Potassium (By mouth) (Augmentin, Augmentin..., Diverticulitis (DC), Perforated Bowel (DC), Opioid Safety Activity Restrictions/Additional Instructions: 1. Patient can have sponge bath. 2.Colostomy and drain care 3. Up and walking as tolerated 4. Do not lift more than 5 pounds first 2 weeks after surgery and not more than 25 pounds 6 to 8 weeks after surgery. 5. Do not operate heavy machinery or drive while using pain medications. 6.Contact the office or return to the ER for worsening nausea vomiting fevers or chills, or noticing any redness around incision sites or discharge. 7/Protein shakes. Discharge Attestations Time Spent in Discharge Care*: greater than 30 min Specific Discharge Activities: educating patient and educating and/or supporting family/caregiver Time Spent in Smoking Cessation: more than 10 minutes Status at Discharge: Cognitive status at discharge: cognitively intact , Behavioral status at discharge: cooperative , Functional status at discharge: independent ambulation , Overall status at discharge: patient is progressing back to baseline Quality Metrics Clinical Quality Measures [ No reported AMI, CVA or VTE this stay] Coding Level of Care Code Acute Chg FW DC note Diagnoses Status post Krystin's procedure Z93.3
--- NOTE | 2021-12-26 16:22 | PC.NURSE ---
Discharge Note Patient discharged to home via private vehicle accompanied by . Discharge instructions reviewed with patient and/or chemical sales representative. Mobile pharmacy medications and/or prescriptions provided. Belongings/home medications returned.
== END 2021-12-26 16:23 | disposition home or self-care (01) | DRG 331 ==
LOC: ER 09:44 → OR 09:52 → MEDSURG 12-23 01:59
PROVIDERS: Physician Assistant; Admitting Provider Surgery; Emergency Provider Family Medicine; PCP Nurse Practitioner Family; Visit Provider Surgery
PROC: 0DTN4ZZ Resection of Sigmoid Colon, Percutaneous Endoscopic Approach (ICD-10-PCS; CPT 49320; principal; 2021-12-22 10:45)
PROC: 0DTE4ZZ Resection of Large Intestine, Percutaneous Endoscopic Approach (ICD-10-PCS; 2021-12-22 10:45)
PROC: 0DTN4ZZ Resection of Sigmoid Colon, Percutaneous Endoscopic Approach (ICD-10-PCS; CPT 44320; 2021-12-22 10:45)
DX: K57.20 Diverticulitis of large intestine with perforation and abscess without bleeding (principal); F17.200 Nicotine dependence, unspecified, uncomplicated; K42.9 Umbilical hernia without obstruction or gangrene
CPT/HCPCS: 36415; 51702; 74177; 80048; 80053; 81003; 83605; 83690; 85025; 87040; 87077; 87205; 88302; 88309; 94640; 96365; 96367; 96372; 99285; J0131; J0330; J0610; J1100; J1170; J1644; J2250; J2270; J2405; J2543; J2550; J2704; J2710; J3010; J3490; J7030; J7040; P9047; Q9967

== ENCOUNTER → 2022-01-14 14:20 | Outpatient (BNVA) | payer BC, MEDICAID, SELFPAY | PROVIDERS: PCP Nurse Practitioner Family; Visit Provider Nurse Practitioner Family | DX: J32.9 Chronic sinusitis, unspecified (principal); M79.89 Other specified soft tissue disorders; Z12.5 Encounter for screening for malignant neoplasm of prostate; Z13.6 Encounter for screening for cardiovascular disorders | CPT/HCPCS: 80053; 80061; 83735; 84443; 85025; G0103 ==

== ENCOUNTER 2022-03-17 10:54 | Outpatient (CLI) | payer BC, MEDICAID, SELFPAY ==
--- NOTE | 2022-03-17 11:00 | US_ITS ---
WS: [id number] ULTRASOUND SOFT TISSUES posterior RIGHT neck. HISTORY: Palpable area for 2 years. COMPARISON: None available. TECHNIQUE: 2-D and color Doppler imaging is submitted. Palpable area along the posterior RIGHT neck corresponds to a hypoechoic, elongated mass measuring 3. 3 x 3.2 x 0.5 cm. No increased vascularity. Similar echogenicity to adjacent muscles. This could be a small accessory muscle or lipoma. US/US soft tissue head neck 19800 IMPRESSION: 1. Palpable area along the posterior RIGHT neck. Differential includes accesso ry muscle versus lipoma. 2. No increased vascularity.
== END 2022-03-17 10:55 | disposition home or self-care (01) ==
LOC: RAD 10:55
PROVIDERS: PCP Family Medicine; Visit Provider Nurse Practitioner Family
DX: M79.89 Other specified soft tissue disorders (principal)
CPT/HCPCS: 76536

== ENCOUNTER 2022-05-14 05:49 | Day surgery (SDC) | payer BC, MEDICAID, SELFPAY ==
[2022-05-12 14:18] VITALS: BMI 25.0
[2022-05-14] VITALS (11 sets, daily range): BP systolic 106–158; BP diastolic 75–96; PULSE 94–106; RESP 12–20; TEMP 36.1–37; O2SAT 94–100
[2022-05-14] MEDS: sodium chloride 0.9% 1,000 ML 30 ML IV (06:16)
--- NOTE | 2022-05-14 06:58 | PM.HP ---
Providers/Chief Complaint Primary Care Provider: Kenisha Perez MD Chief Complaint: R22.1 History of Present Illness Stephen Izquierdo is a 56 year old male here for excision of subcutaneous mass of posterior neck Medications/Allergies Home Medications Medication Instructions Recorded Confirmed Last Taken Type acetaminophen 650 mg 650 mg PO Q8H 05/14/22 05/14/22 05/12/22 History tablet,extended release (Tylenol 8 Hour) naproxen sodium 220 mg tablet 220 mg PO Q12H PRN Pain 05/14/22 05/14/22 05/07/22 History (Aleve) Allergies Allergy/AdvReac Type Severity Reaction Status Date / Time adhesive Allergy ALGY-Rash Verified 05/14/22 06:13 PFSH Acute PFSH: Medical History Colostomy in place Diverticulitis of colon with perforation Surgical History Status post Krystin's procedure Family History Mother Diabetes Grandfather Diabetes Social History Smoking and tobacco status: former smoker Quit status (tobacco): has quit using tobacco Year quit tobacco: quit 1 month ago Second hand smoke exposure: Yes Alcohol intake: never Household members: significant other Marital status: Life Partner Current occupational status: unemployed Current occupation: temporarily not working D/T recent surgery Current gender identity: Male Special german needs: No Vitals/I&O/Wt Last Vital Signs Temp 97 F L 05/14/22 06:08 Pulse 102 H 05/14/22 06:08 Resp 18 05/14/22 06:08 BP 106/75 05/14/22 06:08 Pulse Ox 98 05/14/22 06:08 O2 Del Method 05/14/22 06:13 Weight last 48 hrs Weight 200 lb A&P Assessment and plan (1) Subcutaneous mass of neck: Plan Excision of subcutaneous mass of posterior neck Attestations Medical Necessity Statement*: Home Coding Level of Care Code Acute Code for Chg Fwd Diagnoses Subcutaneous mass of neck R22.1
[2022-05-14] MEDS: ceFAZolin 2,000 MG in sodium chloride 0.9% (plus) 50 ML 100 MG IV (07:13)
[2022-05-14] MEDS: lidocaine-epi 2% 20 mL INJ 10 ML INJECTION (07:34)
--- NOTE | 2022-05-14 07:41 | ANES.PREANE2 ---
Pre-Anesthetic Assessment Height/Weight: Height 1.91 m Weight 90.718 kg Temp Pulse Resp BP Pulse Ox O2 Del Method 97 F L 102 H 18 106/75 98 05/14/22 06:08 05/14/22 06:08 05/14/22 06:08 05/14/22 06:08 05/14/22 06:08 05/14/22 06:13 Preop Diagnosis: Subcutaneous mass of posterior neck Operation Date: 05/14/22 07:00 Proposed Procedures p excision of subq mas of posterior neck 75237, R22.1(Not Applicable) - Hank Pedro DO Familial anesthetic complications: none Was Beta Mihaela taken within 24 hours: N/A Was Clonidine taken within 24 hours: N/A Last intake: Intake Last Liquid Date 05/13/22 Last Liquid Time 19:00 Last Solid Date 05/13/22 Last Solid Time 19:00 Social Tobacco and No alcohol Exam alert, oriented x 3 and regular rate & rhythm Airway Submandibular: within normal limits Cervical ROM: within normal limits Mallampati: Class II Dentition: chipped Pulmonary Chronic Obstructive Pulmonary Disease Musc/skel Lower Back Pain Anesthetic Plan ASA status: 2 Anesthesia: Choice Medications/Allergies Home Medications Medication Instructions Recorded Confirmed Last Taken Type acetaminophen 650 mg 650 mg PO Q8H 05/14/22 05/14/22 05/12/22 History tablet,extended release (Tylenol 8 Hour) naproxen sodium 220 mg tablet 220 mg PO Q12H PRN Pain 05/14/22 05/14/22 05/07/22 History (Aleve) Allergies Allergy/AdvReac Type Severity Reaction Status Date / Time adhesive Allergy ALGY-Rash Verified 05/14/22 06:13 Current Medications Generic Name Dose Route Start Last Admin Trade Name Freq PRN Reason Stop Dose Admin Sodium Chloride 1,000 mls @ 30 mls/hr 05/14/22 06:00 05/14/22 06:16 Sodium Chloride 0.9% IV 05/15/22 05:59 30 mls/hr .Q24H MARTHA Administration PFSH Anesthesia Medical History Colostomy in place Diverticulitis of colon with perforation Surgical History Status post Krystin's procedure Family History Mother Diabetes Grandfather Diabetes Social History Smoking and tobacco status: former smoker Quit status (tobacco): has quit using tobacco Year quit tobacco: quit 1 month ago Second hand smoke exposure: Yes Alcohol intake: never Household members: significant other Marital status: Life Partner Current occupational status: unemployed Current occupation: temporarily not working D/T recent surgery Current gender identity: Male Special german needs: No Data Anesthesia Cardiac Studies: No Data to Display
[2022-05-14] MEDS: meperidine 50 mg/mL INJ 12.5 MG IVP (07:57)
--- NOTE | 2022-05-14 08:03 | PC.NURSE ---
LMA removed. Patient awake and responding appropriately
--- NOTE | 2022-05-14 08:07 | PM.OP ---
Operative Report Date of procedure: May 14, 2022 Pre-op diagnosis: Preop Diagnosis Subcutaneous mass of posterior neck Post-op diagnosis: same Procedure done: Excision of subcutaneous mass of posterior neck Specimens removed/disposition: Subcutaneous mass of posterior neck Surgeon: Dr. Hank Pedro, Anesthesia: General Estimated blood loss (mL): 2 Complications: None apparent Brief History: This is a very pleasant 56-year-old gentleman with a subcutaneous mass of his posterior neck that is causing him pain. He desires excision. The risks and benefits were explained and documented. Procedure: Patient was wheeled in the operative room placed on the OR table in supine position. The posterior neck was inspected prepped and draped in usual sterile fashion. A timeout was performed. All present were in agreement. 2% lidocaine with epinephrine was used to anesthetize the area around the lesion which measured 3 centimeters in greatest diameter. A 15 blade scalpel then used to make an measuring 3.5 centimeters in length. Incision was carried down to subcutaneous tissue and the specimen was passed off. Specimen was consistent with lipoma. 3-0 Vicryl was used to approximate the dermis. Hemostasis was noted. Skin glue was used. Patient tolerated the procedure well.
--- NOTE | 2022-05-14 08:08 | PC.NURSE ---
ice to posterior neck
[2022-05-14] MEDS: TRAMadol 50 mg Tablet 100 MG PO (08:58)
--- NOTE | 2022-05-14 14:38 | ANE.PACU2 ---
Inpatient post-anesthesia follow up: Airway intact: Yes Vital signs: Temperature 98.3 F Pulse Rate 99 Respiratory Rate 18 Blood Pressure 135/96 Pulse Oximetry 96 Oxygen Delivery Me thod Room Air Oxygen Flow Rate Fraction of Inspir ed Oxygen Hydration adequate: Yes Nausea and vomiting: No Pain level: 2 Mental status: Baseline
== END 2022-05-14 09:00 | disposition home or self-care (01) ==
PROVIDERS: PCP Family Medicine; Visit Provider Surgery
DX: D17.0 Benign lipomatous neoplasm of skin and subcutaneous tissue of head, face and neck (principal); J44.9 Chronic obstructive pulmonary disease, unspecified; Z87.891 Personal history of nicotine dependence; Z93.3 Colostomy status
CPT/HCPCS: 88309; J0330; J0690; J1100; J2175; J2250; J2370; J2405; J2704; J3010; J3490; J7030

== ENCOUNTER → 2022-06-23 11:19 | Outpatient (BNVA) | payer BC, MEDICAID, SELFPAY | PROVIDERS: PCP Family Medicine; Visit Provider Family Medicine | DX: Z13.6 Encounter for screening for cardiovascular disorders (principal); Z12.5 Encounter for screening for malignant neoplasm of prostate | CPT/HCPCS: 80053; 80061; 84443; 85025; G0103 ==

== ENCOUNTER 2022-09-21 11:53 | Day surgery (SDC) | payer BC, MEDICAID, SELFPAY ==
[2022-09-18 16:09] VITALS: BMI 25.0
[2022-09-21] VITALS (10 sets, daily range): BP systolic 122–151; BP diastolic 70–92; PULSE 64–97; RESP 14–18; TEMP 36.3–36.6; O2SAT 94–98
[2022-09-21] MEDS: sodium chloride 0.9% 1,000 ML 30 ML IV (12:24)
--- NOTE | 2022-09-21 13:07 | W.PM.OPSUD ---
Surgery/Procedure H&P Update DATE OF PROCEDURE: September 21, 2022 DATE H&P PERFORMED: 09/16/22 H&P UPDATE INFORMATION: I have reviewed H&P completed within last 30 days, I have examined patient prior to procedure and No changes to prior documentation CHANGES TO PREVIOUS DOCUMENTATION: Incisional hernia defect measures approximately 5 cm in diameter preoperatively PLANNED PROCEDURE: Operation Date: 09/21/22 13:45 Proposed Procedures p Laparoscopic Ventral Hernia Repair(Not Applicable) - Hank Pedro DO
--- NOTE | 2022-09-21 13:15 | ANES.PREANE2 ---
Pre-Anesthetic Assessment Height/Weight: Height 1.91 m Weight 90.718 kg Temp Pulse Resp BP Pulse Ox O2 Del Method 97.4 F L 93 17 126/76 96 Room Air 09/21/22 12:07 09/21/22 12:07 09/21/22 12:07 09/21/22 12:07 09/21/22 12:07 09/21/22 12:20 Operation Date: 09/21/22 13:45 Proposed Procedures p Laparoscopic Ventral Hernia Repair(Not Applicable) - Hank Pedro DO Familial anesthetic complications: none Was Beta Mihaela taken within 24 hours: N/A Was Clonidine taken within 24 hours: N/A Last intake: Intake Last Liquid Date 09/20/22 Last Liquid Time 23:55 Last Solid Date 09/20/22 Last Solid Time 19:00 Social Tobacco and No alcohol Exam alert, oriented x 3, clear to auscultation bilaterally and regular rate & rhythm Airway Mallampati: Class II Dentition: full GI hx perforated diverticulum Musc/skel Lower Back Pain Anesthetic Plan ASA status: 2 Anesthesia: General Risk of > 500 ml blood loss (7ml/kg in children): No Medications/Allergies Home Medications Medication Instructions Recorded Confirmed Last Taken Type cyclobenzaprine 10 mg tablet 10 mg PO .qhs PRN muscle relaxer 09/18/22 09/21/22 09/19/22 History 2000 Allergies Allergy/AdvReac Type Severity Reaction Status Date / Time adhesive Allergy ALGY-Rash Verified 09/18/22 16:06 Current Medications Generic Name Dose Route Start Last Admin Trade Name Freq PRN Reason Stop Dose Admin Sodium Chloride 1,000 mls @ 30 mls/hr 09/21/22 12:00 09/21/22 12:24 Sodium Chloride 0.9% IV 09/22/22 11:59 30 mls/hr .Q24H MARTHA Administration PFSH Anesthesia Medical History Diverticulitis of colon with perforation Surgical History History of colostomy reversal Hx of excision of mass 05/14/22 excision of subcutaneous mass of posterior neck Dr. Pedro Status post Krystin's procedure Family History Mother Diabetes Grandfather Diabetes Social History Smoking and tobacco status: former smoker Quit status (tobacco): has quit using tobacco Year quit tobacco: quit 1 month ago Second hand smoke exposure: Yes Alcohol intake: never Substance/Drug Use: never Household members: significant other Marital status: Life Partner Current occupational status: unemployed Current occupation: temporarily not working D/T recent surgery Current gender identity: Male Special german needs: No Data Anesthesia Cardiac Studies: No Data to Display
[2022-09-21] MEDS: ceFAZolin 2,000 MG in sodium chloride 0.9% (plus) 50 ML 100 MG IV (13:54)
[2022-09-21] MEDS: lidocaine-epi 2% 20 mL INJ INJECTION (14:29)
--- NOTE | 2022-09-21 14:59 | PM.OP ---
Operative Report Date of procedure: September 21, 2022 Pre-op diagnosis: Incisional hernia Post-op diagnosis: same Procedure done: Laparoscopic repair of incisional hernia with mesh Implants: 6 inch round Ventralight mesh Specimens removed/disposition: Hernia sac Surgeon: Dr. Hank Pedro DO Anesthesia: General Estimated blood loss (mL): 5 Complications: None apparent Brief History: This very pleasant 56-year-old gentleman who recently had a colostomy reversal. Postoperatively he has developed an incisional hernia at the colostomy site. Laparoscopic repair of incisional hernia with mesh is indicated. The risks and benefits were explained and documented. Procedure: Patient was wheeled into the operative room and placed on the OR table in a supine position. Abdomen was inspected prepped and draped in usual sterile fashion. Time-out was performed and all present were in agreement. A 15 blade scalp was used to make a 5 millimeter incision left upper quadrant. A Veress needle was placed into the incision and intra-abdominal insufflation was brought to 15 millimeters of mercury. A 12 millimeter trocar was placed into the left lower quadrant. The energy but device was then used to cut out the hernia sac. The hernia defect measured 5 cm in diameter. A 6 inch ventral light mesh was placed into the abdomen and brought up through the umbilicus using an the Florentino-Neelam. The mesh was then tacked in place in a double crown fashion. The skeleton of the mesh was removed via the left lower quadrant. The hernia sac was then removed from the abdomen via the left lower quadrant. The left lower quadrant port site was closed with an 0 Vicryl suture in a Florentino-Neelam in a [id number] fashion. Incisions were closed with 4 O Vicryl in a subcuticular interrupted fashion. Skin glue was applied. Patient tolerated the procedure well.
[2022-09-21] MEDS: HYDROcodone-acetaminophen 10-325 mg Tablet 1 TAB PO (16:15)
--- NOTE | 2022-09-21 16:21 | ANE.PACU2 ---
Inpatient post-anesthesia follow up: Airway intact: Yes Vital signs: Temperature 97.6 F Pulse Rate 73 Respiratory Rate 16 Blood Pressure 123/76 Pulse Oximetry 95 Oxygen Delivery Me thod Room Air Oxygen Flow Rate 6 Fraction of Inspir ed Oxygen Hydration adequate: Yes Nausea and vomiting: Yes Pain level: 1 Mental status: Baseline
== END 2022-09-21 16:40 | disposition home or self-care (01) ==
PROVIDERS: PCP Family Medicine; Visit Provider Surgery
PROC: 0WQF4ZZ Repair Abdominal Wall, Percutaneous Endoscopic Approach (ICD-10-PCS; CPT 49593; principal; 2022-09-21 13:45)
DX: K43.2 Incisional hernia without obstruction or gangrene (principal); Z87.891 Personal history of nicotine dependence
CPT/HCPCS: 49593; 51702; 88302; J0690; J1100; J1170; J2250; J2405; J2704; J2710; J3010; J3490; J7030

== ENCOUNTER 2022-10-03 13:31 | Emergency (ER) | payer BC, MEDICAID, SELFPAY ==
[2022-10-03 13:39] VITALS: BP 118/76; PULSE 90; RESP 16; TEMP 36.5; O2SAT 96
--- NOTE | 2022-10-03 14:28 | ED_ITS ---
HPI - Abdominal Pain General: Chief Complaint: Abdominal Pain Stated Complaint: can't defecate Time Seen by Provider: 10/03/22 14:28 History of Present Illness: Mr. Rogers is a 56-year-old gentleman with complex past medical history including multiple abdominal surgeries including incisional hernia repair on 09/21 presenting to the emergency department for increased abdominal pain and constipation despite treatment. He reports unremarkable postoperative course and only required opioids the first 2 days. He has been taking stool softeners as well as ensuring to stay hydrated however the past few days increased left abdominal pain associated with decreased stool output. He does note still having flatus. Normal urine output. Denies other signs systemic illness. Worse with palpation and movement. No other specific changes in health, exacerbating, or alleviating factors identified. Onset (ago): day(s) Location: LUQ and LLQ Severity: moderate Exacerbating factors: movement and other Review of Systems General: Reports: 10 or more systems reviewed and unremarkable except in HPI and below PFSH ED PFSH: Medical History Diverticulitis of colon with perforation Surgical History History of colostomy reversal History of hernia surgery Lap repair of incisional hernia with mesh- Dr. Pedro 09/23/22 Hx of excision of mass 05/14/22 excision of subcutaneous mass of posterior neck Dr. Pedro Status post Krystin's procedure Family History Mother Diabetes Grandfather Diabetes Social History Smoking and tobacco status: former smoker Quit status (tobacco): has quit using tobacco Year quit tobacco: quit 1 month ago Second hand smoke exposure: Yes Alcohol intake: never Substance/Drug Use: never Household members: significant other Marital status: Life Partner Current occupational status: unemployed Current occupation: temporarily not working D/T recent surgery Current gender identity: Male Special german needs: No Physical Exam Const: COMMON NORMALS: alert GENERAL APPEARANCE: cooperative and well developed HENMT: COMMON NORMALS: normocephalic and atraumatic HEAD & SCALP: normocephalic and atraumatic Eye: COMMON NORMALS: conjunctivae normal CONJUNCTIVA: Yes conjunctivae normal SCLERA: sclerae normal Neck/C-Spine: COMMON NORMALS: supple GENERAL: Yes trachea midline Resp: COMMON NORMALS: normal respiratory effort EFFORT & INSPECTION: Yes able to speak in complete sentences Cardio: COMMON NORMALS: regular rate and regular rhythm RATE: regular rate RHYTHM: regular rhythm GI: COMMON NORMALS: Soft to palpation PALPATION: Yes Soft to palpation, Yes Tenderness to palpation present (GI), No Guarding due to palpation present (GI) and No Rigid due to palpation Extremity: GENERAL: Yes normal exam except as noted and No edema Neuro: COMMON NORMALS: moves all extremities SENSORIUM/ORIENTATION: Yes alert and No Orientation impaired Psych: COMMON NORMALS: mental status grossly normal and Normal thought process present THOUGHT PROCESS: Normal thought process present Course Vital Signs: Vital signs: Vital Signs Temperature 97.7 F 10/03/22 13:39 Pulse Rate 81 10/03/22 18:20 Respiratory Rate 16 10/03/22 13:39 Blood Pressure 122/88 10/03/22 18:20 Pulse Oximetry 99 10/03/22 18:20 Oxygen Delivery Me thod Room Air 10/03/22 17:30 MDM - Abdominal Pain Medical Decision Making 56-year-old gentleman presenting with abdominal symptoms after surgery. Exam as above. Tenderness and fullness without evidence of peritonitis. Surgical incision appears well-healing without exam evidence of cellulitis. No significant hematologic or metabolic abnormalities. CT demonstrates small bowel thickening and probable abscess between the layers of the left abdominal wall musculature. Discussed with general surgery who was consulted and came to eval the patient. Patient is satisfactory for outpatient management lower clinical suspicion for abscess and will likely postoperative fluid collection. Given first dose of antibiotics here given that pharmacies are closed. The results of ED evaluation were discussed with the patient including prescriptions and/or symptomatic cares (if applicable) including appropriate and responsible use, followup plan, and return precautions. The patient verbalized understanding and felt safe for discharge. Medical Records I reviewed the patient's medical records. Lab Data I reviewed the patient's lab results. 10/03/22 14:54 10/03/22 14:54 Labs/Radiology: Radiology Impressions Abdomen/Pelvis CT 10/03/22 14:37 IMPRESSION: 1. There is diffuse small bowel wall thickening, consistent with infectious, ischemic, or inflammatory enteritis. Mild colitis. 2. Probable abscess between the layers of the left abdominal wall musculature where it appears there may have been a prior ostomy site. There is thickening and edema of the muscles, induration of the adjacent subcutaneous fat and marked induration/phlegmonous type change of the deeper omental fat. There is free fluid in the abdomen and pelvis. No free air or intraperitoneal abscess. Laboratory Results WBC 6.5 10^3/uL (4.0-10.0) 10/03/22 14:54 RBC 5.29 10^6/uL (4.1-5.3) 10/03/22 14:54 Hgb 14.8 g/dL (11.7-16.6) 10/03/22 14:54 Hct 44.3 % (42.0-52.0) 10/03/22 14:54 MCV 83.7 fl (80-94) 10/03/22 14:54 MCH 28.0 pg (28.0-34.0) 10/03/22 14:54 MCHC 33.4 g/dL (30.0-36.0) 10/03/22 14:54 RDW 12.6 % (12.1-15.1) 10/03/22 14:54 Plt Count 270 10^3/cmm (130-400) 10/03/22 14:54 MPV 9.2 fL (7.4-10.4) 10/03/22 14:54 Neut % (Auto) 62.2 % 10/03/22 14:54 Lymph % (Auto) 28.6 % 10/03/22 14:54 [place] % (Auto) 7.0 % 10/03/22 14:54 Eos % (Auto) 1.2 % 10/03/22 14:54 Baso % (Auto) 0.5 % 10/03/22 14:54 Neut # (Auto) 4.07 10^3/uL (1.8-7.7) 10/03/22 14:54 Lymph # (Auto) 1.9 10^3/uL (0.8-4.8) 10/03/22 14:54 [place] # (Auto) 0.5 10^3/uL (0.2-0.9) 10/03/22 14:54 Eos # (Auto) 0.1 10^3/uL (0.0-0.8) 10/03/22 14:54 Baso # (Auto) 0.0 10^3/uL (0.0-0.1) 10/03/22 14:54 Nucleated RBC % (auto) 0 % 10/03/22 14:54 Nucleated RBCs # 0.0 /100WBC 10/03/22 14:54 Sodium 138 mmol/L (136-145) 10/03/22 14:54 Potassium 4.2 mmol/L (3.5-5.1) 10/03/22 14:54 Chloride 100 mmol/L (98-107) 10/03/22 14:54 Carbon Dioxide 27 mmol/L (22-29) 10/03/22 14:54 Anion Gap 15.2 (5-19) 10/03/22 14:54 BUN 11 mg/dL (6-20) 10/03/22 14:54 Creatinine 0.9 mg/dL (0.7-1.2) 10/03/22 14:54 GFR Calculation 87.3 mL/min (90-130) L 10/03/22 14:54 Glucose 95 mg/dL (65-115) 10/03/22 14:54 Calculated Osmolality 285 mOsm/kg (285-295) 10/03/22 14:54 Calcium 9.4 mg/dL (8.5-10.5) 10/03/22 14:54 Total Bilirubin 0.5 mg/dL (0.15-1.2) 10/03/22 14:54 AST 17 U/L (0-40) 10/03/22 14:54 ALT 20 U/L (0-41) 10/03/22 14:54 Alkaline Phosphatase 85 U/L (40-130) 10/03/22 14:54 Total Protein 7.6 g/dL (6.6-8.7) 10/03/22 14:54 Albumin 4.5 g/dL (3.5-5.2) 10/03/22 14:54 Globulin 3.1 g/dL (1.3-4.6) 10/03/22 14:54 Discharge Plan Discharge Patient Disposition: Home Clinical Impression: Post-operative state, Enterocolitis Condition: Stable Prescriptions: New Miralax 17 gram/dose powder 17 g PO TID PRN (Reason: constipation) Qty: 238 0RF ciprofloxacin HCl 500 mg tablet 500 mg PO Q12H Qty: 10 0RF No Action cyclobenzaprine 10 mg tablet 10 mg PO BEDTIME PRN (Reason: muscle relaxer) hydrocodone-acetaminophen 10-325 mg tablet 1 tab PO Q6H PRN (Reason: pain) Qty: 20 0RF Rx Instructions: May take half of a tab at a time docusate sodium [Colace] 100 mg capsule 100 mg PO BID Qty: 14 0RF Discharge Orders: Discharge ED (Routine); Ordered 10/03/22 Ordered By: David Siddiqui Referrals: Kenisha Perez MD [Primary Care Provider] - Discharge Diet: Advance as tolerated and Clear Liquid Discharge Activity: Increase activity as tolerated Patient Instructions: Abdominal Pain (ED) Activity Restrictions/Additional Instructions: Thank you for visiting the emergency department. You were seen and evaluated for abdominal pain and postoperative concern. The exact cause of your symptoms is unclear. There is a postoperative fluid collection which may be normal however does require further outpatient evaluation. There is also nonspecific inflammation of the bowel. This will be treated with antibiotics. I will prescribe MiraLAX. Please use 1 capful 3 times a day and then adjust between 1 and 3 times a day for soft bowel movements. Please ensure that you are staying hydrated. Follow-up with surgery. Return for worsening symptoms or anything else that you are concerned about and feel needs emergency department evaluation. Coding Level of Care Code ED Labor Crew Supervisor for Nunu Jimenez
--- NOTE | 2022-10-03 14:37 | CTR_ITS ---
PROCEDURE INFORMATION: Exam: CT Abdomen And Pelvis With Contrast Exam date and time: 10/03/2022 3:20 PM Age: 56 years old Clinical indication: Constipation; Prior surgery; Surgery date: 1-6 months; Surgery type: Colostomy reversal 04/2022; Patient HX: PT states 48+ hrs since last bowel movement; Additional info: Worsening left-sided pain. Surgery for hernia on 09/21. Con TECHNIQUE: Imaging protocol: Computed tomography of the abdomen and pelvis with contrast. Radiation optimization: All CT scans at this facility use at least one of these dose optimization techniques: automated exposure control; mA and/or kV adjustment per patient size (includes targeted exams where dose is matched to clinical indication); or iterative reconstruction. Contrast material: OMNIPAQUE 350; Contrast volume: 100 ml; Contrast route: INTRAVENOUS (IV); REPORTING DATA: Count of CT and Cardiac NM exams in prior 12 months: This patient has received [address] and 0 known cardiac nuclear medicine studies in the 12 months prior to the current study. COMPARISON: CT abdomen pelvis w con* [id number] 12/22/2021 8:45 AM RADIATION DOSE METRICS: Total DLP (mGy-cm): 612.03 FINDINGS: Diaphragm: A small hiatal hernia is present. Liver: Unremarkable.No mass. Gallbladder and bile ducts: Normal. No calcified stones. No ductal dilation. Pancreas: The pancreas is normal. Spleen: The spleen is normal. Adrenal glands: The adrenal glands are normal. Kidneys and ureters: There is no evidence of hydronephrosis. There is no evidence of renal calcifications. Stomach and bowel: There are postoperative changes of partial colectomy with anastomosis of the sigmoid colon.There is no evidence of intestinal perforation or obstruction. There is diffuse small bowel wall thickening, consistent with infectious, ischemic, or inflammatory enteritis. The stomach is decompressed, preventing meaningful evaluation of wall thickness. There is mild wall thickening of the colon compatible with mild colitis. This is less prominent than the small bowel thickening. Appendix: No evidence of appendicitis. Intraperitoneal space: There is a small volume of free fluid mostly in the pelvis and no free intraperitoneal air. There is thickening/phlegmonous change of the mesenteric fat/omentum deep to the probable abscess left abdominal wall image 48. No well-defined or drainable intraperitoneal abscess. Vasculature: Unremarkable.No abdominal aortic aneurysm. Lymph nodes: Unremarkable.No enlarged lymph nodes. Urinary bladder: There is nonspecific bladder wall thickening. This may be related to incomplete distention. Reproductive: The prostate demonstrates moderate nonspecific enlargement. The seminal vesicles are normal. The prostate demonstrates nonspecific parenchymal calcifications. Bones/joints: Unremarkable. No acute fracture. Soft tissues: There is a defect in the left abdominal wall from probable prior ostomy site with peripherally enhancing fluid collection concerning for abscess between the layers of the left abdominal wall muscles measuring 1.6 x 3.8 x 2.1 cm series 3, image 47-51. There is a fat-containing umbilical hernia. CT/CT abdomen pelvis w con* [id number] IMPRESSION: 1. There is diffuse small bowel wall thickening, consistent with infectious, ischemic, or inflammatory enteritis. Mild colitis. 2. Probable abscess between the layers of the left abdominal wall musculature where it appears there may have been a prior ostomy site. There is thickening and edema of the muscles, induration of the adjacent subcutaneous fat and marked induration/phlegmonous type change of the deeper omental fat. There is free fluid in the abdomen and pelvis. No free air or intraperitoneal abscess.
[2022-10-03 15:02] VITALS: BP 115/74; PULSE 84; O2SAT 93
[2022-10-03 15:07] LABS: Basophils % 0.5 %; Eosinophils # 0.1 10^3/uL (0.0-0.8); Eosinophils % 1.2 %; Hematocrit 44.3 % (42.0-52.0); Hemoglobin 14.8 g/dL (11.7-16.6); Lymphocytes # 1.9 10^3/uL (0.8-4.8); Lymphocytes % 28.6 %; Mean Corpuscular HGB Conc 33.4 g/dL (30.0-36.0); Mean Corpuscular Volume 83.7 fl (80-94); Mean Platelet Volume 9.2 fL (7.4-10.4); Monocytes # 0.5 10^3/uL (0.2-0.9); Neutrophils # 4.07 10^3/uL (1.8-7.7); Neutrophils % 62.2 %; Nucleated Red Blood Cells % 0 %; Platelet Count 270 10^3/cmm (130-400); Red Blood Count 5.29 10^6/uL (4.1-5.3); Red Cell Distribution Width 12.6 % (12.1-15.1); White Blood Count 6.5 10^3/uL (4.0-10.0)
[2022-10-03] MEDS: iohexol 350 mg/mL 500 mL Btl (per mL) IV (15:22)
[2022-10-03 15:27] LABS: Alanine Aminotransferase 20 U/L (0-41); Albumin Level 4.5 g/dL (3.5-5.2); Alkaline Phosphatase 85 U/L (40-130); Anion Gap 15.2 (5-19); Aspartate Amino Transferase 17 U/L (0-40); Blood Urea Nitrogen 11 mg/dL (6-20); Calcium 9.4 mg/dL (8.5-10.5); Carbon Dioxide 27 mmol/L (22-29); Chloride 100 mmol/L (98-107); Globulin 3.1 g/dL (1.3-4.6); Glomerular Filtration Rate 87.3 mL/min (90-130); Glucose 95 mg/dL (65-115); Osmolality Calculated 285 mOsm/kg (285-295); Potassium 4.2 mmol/L (3.5-5.1); Sodium 138 mmol/L (136-145); Total Bilirubin 0.5 mg/dL (0.15-1.2); Total Protein 7.6 g/dL (6.6-8.7)
[2022-10-03 16:06] VITALS: BP 118/68; PULSE 72; O2SAT 99
[2022-10-03 17:30] VITALS: BP 125/78; PULSE 79; O2SAT 98
--- NOTE | 2022-10-03 17:37 | PM.CONSULT ---
Providers/Reason For Consult Consulting Physician/Specialty*: General surgery Reason for Consult*: Abdominal pain possible abdominal wall abscess Primary Care Provider: Kenisha Perez MD History of Present Illness History of Present Illness Stephen Izquierdo is a 56 year old male who presents to our emergency department for evaluation of abdominal pain and constipation. Patient had laparoscopic incisional hernia repair with mesh on 09/21. He has a long history including diverticulitis requiring segmental sigmoid resection and ostomy creation, subsequent ostomy takedown after which he developed a hernia which was repaired. Since repair his has been doing okay but over the last 3 days he complains of difficulty passing stool and some pain in the left lower quadrant at the level of the previous ostomy site. Denies fever chills nausea or vomiting. No other constitutional symptoms. White count in the ED was normal, a CAT scan was obtained and showed evidence of apparent enteritis with some thickening of the intestine and colon, in addition there is a small fluid collection in the abdominal wall at the level of the previous hernia site which was read as possible abscess. I was consulted for this finding. Review of Systems Narrative: A 10 point review of systems was done and is negative otherwise noted in HPI Medications/Allergies Home Medications Medication Instructions Recorded Confirmed Last Taken Type cyclobenzaprine 10 mg tablet 10 mg PO BEDTIME PRN muscle relaxer 09/18/22 10/03/22 1 Week Ago History ~09/26/22 docusate sodium 100 mg capsule 100 mg PO BID #14 caps 09/21/22 10/03/22 10/03/22 09:00 Rx (Colace) hydrocodone 10 mg-acetaminophen 1 tab PO Q6H PRN pain #20 tabs 09/21/22 10/03/22 09/23/22 Rx 325 mg tablet ciprofloxacin HCl 500 mg tablet 500 mg PO Q12H #10 tabs 10/03/22 Unknown Rx metronidazole 500 mg tablet 500 mg PO Q8H 5 days #15 tabs 10/03/22 Unknown Rx polyethylene glycol 3350 17 17 g PO TID PRN constipation #238 10/03/22 Unknown Rx gram/dose oral powder (Miralax) grams Allergies Allergy/AdvReac Type Severity Reaction Status Date / Time adhesive Allergy ALGY-Rash Verified 10/03/22 13:48 PFSH Acute PFSH: Medical History Diverticulitis of colon with perforation Surgical History History of colostomy reversal Hx of excision of mass 05/14/22 excision of subcutaneous mass of posterior neck Dr. Pedro Status post Krystin's procedure Family History Mother Diabetes Grandfather Diabetes Social History Smoking and tobacco status: former smoker Quit status (tobacco): has quit using tobacco Year quit tobacco: quit 1 month ago Second hand smoke exposure: Yes Alcohol intake: never Substance/Drug Use: never Household members: significant other Marital status: Life Partner Current occupational status: unemployed Current occupation: temporarily not working D/T recent surgery Current gender identity: Male Special german needs: No Vitals/I&O/Wt Last Vital Signs Temp 97.7 F 10/03/22 13:39 Pulse 72 10/03/22 16:06 Resp 16 10/03/22 13:39 BP 118/68 10/03/22 16:06 Pulse Ox 99 10/03/22 16:06 O2 Del Method Room Air 10/03/22 16:06 Weight last 48 hrs Weight 192 lb Physical Exam Narrative: General : Patient is well developed , no acute distress, oriented x3 Head : Normal cephalic, a-traumatic. Nose : Mucous membranes are without erythema. Lungs : Equal chest rise bilaterally, no use of accessory muscles, trachea is midline. CV : Rate and rhythm are normal. Abdomen : Soft, minimal tenderness in the left lower quadrant, surgical incisions well-healed. Extremities : No edema. Upper extremities are normal bilaterally. Back : non-tender to palpation, no CVA tenderness. Data 10/03/22 14:54 10/03/22 14:54 A&P Assessment and plan (1) Seroma after procedure: Plan After a complete history physical examination and review of well available clinical data, the following is my assessment. At this point is unlikely that the fluid collection noted on the CT scan of the abdomen represent an abscess, after my personal review of the imaging I believe this to be more consistent with a seroma with surrounding postsurgical changes after hernia repair. The lack of systemic symptoms including a normal white count with normal neutrophil count are also more consistent with a diagnosis of seroma versus abdominal wall abscess. There is no changes in the superficial skin, patient is otherwise feeling well. At this point I have explained to the patient that the likelihood of an abdominal wall abscess is low, I believe this is a seroma which can be observed, no additional intervention is required at the moment as the fluid collection is a small and may resolve on its own. Regarding the enteritis seen on the CT scan while these may be postsurgical changes it can also be inflammatory in nature. A short course of antibiotics can be considered for these as necessary. I Given the patient warning signs regarding systemic symptoms of infection or other signs Of concern for which he will have to return to the emergency department. He shows understanding and agrees. I have also instructed the emergency department team to please provide additional stool softeners with MiraLAX to facilitate evacuation of the stool. Patient will follow-up in the surgery clinic on Wednesday with my partner Dr. Pedro. Coding Level of Care Code 13657 Diagnoses Seroma after procedure
[2022-10-03] MEDS: ciprofloxacin 500 mg Tablet PO (18:16)
[2022-10-03] MEDS: metroNIDAZOLE 500 MG Tablet PO (18:16)
[2022-10-03 18:20] VITALS: BP 122/88; PULSE 81; O2SAT 99
== END 2022-10-03 18:21 | disposition home or self-care (01) ==
PROVIDERS: Emergency Provider Emergency Medicine; PCP Family Medicine
DX: K52.9 Noninfective gastroenteritis and colitis, unspecified (principal); Z98.890 Other specified postprocedural states; Z87.891 Personal history of nicotine dependence
CPT/HCPCS: 36415; 74177; 80053; 85025; 87040; 99254; 99285; Q9967

== ENCOUNTER 2023-08-11 14:45 | Outpatient (CLI) | payer BC, MEDICAID, SELFPAY ==
--- NOTE | 2023-08-11 14:52 | XRR_ITS ---
PROCEDURE INFORMATION: Exam: XR Right Knee Exam date and time: 08/11/2023 3:23 PM Age: 57 years old Clinical indication: Swelling or effusion of joint; Knee; Additional info: M25.461 - effusion, right knee TECHNIQUE: Imaging protocol: Radiologic exam of the right knee. Views: 3 views. COMPARISON: No relevant prior studies available. FINDINGS: Bones/joints: Mild fullness in the popliteal fossa. No joint effusions. No fracture or dislocation. Soft tissues: No significant soft tissue swelling. XR/XR knee RT 3V* [id number] IMPRESSION: 1. Mild fullness in the popliteal fossa. Questions underlying popliteal cyst versus artifact from superimposition of structures. Consider correlation with targeted ultrasound. 2. No joint effusions.
== END 2023-08-11 14:46 | disposition home or self-care (01) ==
LOC: RAD 14:45
PROVIDERS: PCP Family Medicine; Visit Provider Family Medicine
DX: M25.461 Effusion, right knee (principal)
CPT/HCPCS: 73562; 84550

== ENCOUNTER → 2023-08-25 10:17 | Outpatient (BNVA) | payer BC, MEDICAID, SELFPAY | PROVIDERS: PCP Family Medicine; Referring Provider Family Medicine; Visit Provider Physician Assistant | DX: M70.41 Prepatellar bursitis, right knee | CPT/HCPCS: 73560; 73565 ==

== ENCOUNTER → 2023-11-09 08:35 | Outpatient (BNVA) | payer BC, MEDICAID, SELFPAY | PROVIDERS: PCP Family Medicine; Visit Provider Physician Assistant | DX: M25.512 Pain in left shoulder; M75.42 Impingement syndrome of left shoulder; M19.012 Primary osteoarthritis, left shoulder | CPT/HCPCS: 73030 ==

== ENCOUNTER 2024-03-08 15:15 | Outpatient (CLI) | payer BC, MEDICAID, SELFPAY ==
--- NOTE | 2024-03-08 16:15 | CT_ITS ---
WS: [id number] CT ABDOMEN AND PELVIS WITH CONTRAST HISTORY: R10.32 - Left lower quadrant pain TECHNIQUE: Imaging performed of the abdomen and pelvis with IV contrast. Single phase imaging of the abdomen. Coronal and sagittal reformats are submitted. All CT scans at [facility] use at [address] one of these dose optimization techniques: automated exposure control; mA and/or kV adjustment per patient size (includes targeted exams where dose is matched to clinical indication); or iterative re construction. IV CONTRAST: Omnipaque 350; 100 mL IV. Oral contrast: Yes. DLP: 449.06 mGy.cm COMPARISON: 10/03/2022 Lower thorax: Lung bases are clear. Heart is normal size. No hiatal hernia. Liver/biliary system: Normal size liver. Scattered too small to characterize hypodensities are simila r to 10/03/2022. Gallbladder: Normal. No gallstones or wall thickening. No pericholecystic fluid. Pancreas: Normal size pancreas and pancreatic duct. No adjacent inflammation. Spleen: Normal size spleen. No mass or infarct. Adrenal glands: Normal. Right kidney: Normal. Left kidney: Normal. Aorta: Mild atherosclerosis with no aneurysm. Lymphadenopathy: None. Free fluid: None. GI tract: Nondistended stomach. No small bowel obstruction. Normal appendix. Moderate fecal retention in the ascending and transverse colon. Surgical sutures in the sigmoid colon. There is no obstructiv e pattern. No mass. Abdominal wall: Unremarkable abdominal wall. No hernia. Pelvis: No free fluid or adenopathy within the pelvis. Bones: Facet joint arthropathy at L5-S1. RIGHT unilateral pars defect. CT/CT abdomen pelvis w con* [id number] IMPRESSION: 1. Surgical sutures in the sigmoid colon reidentified. No obstruction or mass. 2. No ascites or free air. 3. No renal obstruction.
[2024-03-08] MEDS: iohexol 350 mg/mL 500 mL Btl (per mL) PO (16:30)
[2024-03-08] MEDS: iohexol 350 mg/mL 500 mL Btl (per mL) IV (16:38)
== END 2024-03-08 15:16 | disposition home or self-care (01) ==
LOC: RAD 15:15
PROVIDERS: PCP Nurse Practitioner Family; Visit Provider Nurse Practitioner Family
DX: R10.32 Left lower quadrant pain (principal); K59.00 Constipation, unspecified
CPT/HCPCS: 74177

== ENCOUNTER 2024-05-08 14:15 | Outpatient (CLI) | payer BC, MEDICAID, SELFPAY ==
--- NOTE | 2024-05-08 14:23 | XRR_ITS ---
PROCEDURE INFORMATION: Exam: XR Cervical Spine Exam date and time: 05/08/2024 2:45 PM Age: 58 years old Clinical indication: Neck pain; Prior surgery; Surgery date: 1-6 months; Surgery type: Spine tumor removal; Deep pain at nape of neck. ; Additional info: M54.2 - cervicalgia TECHNIQUE: Imaging protocol: Radiologic exam of the cervical spine. Views: 2 or 3 views. COMPARISON: CR XR shoulder LT min 2V* [id number] 11/09/2023 8:37 AM FINDINGS: Bones/joints: No acute fracture. Normal alignment. Soft tissues: Unremarkable. XR/XR cervical spine 3V* [id number] IMPRESSION: No acute findings.
== END 2024-05-08 14:16 | disposition home or self-care (01) ==
PROVIDERS: PCP Nurse Practitioner Family; Visit Provider Nurse Practitioner Family
DX: M54.2 Cervicalgia (principal)
CPT/HCPCS: 72040

== ENCOUNTER 2024-05-29 07:03 | Outpatient (CLI) | payer BC, MEDICAID, SELFPAY ==
--- NOTE | 2024-05-29 07:15 | MR_ITS ---
WS: [id number] MRI CERVICAL SPINE NONCONTRAST TECHNIQUE: Sagittal T1, T2 and STIR imaging. Axial T2, gradient, and fiesta imaging. CLINICAL INFORMATION: M54.2 - Cervicalgia COMPARISON: None. FINDINGS: Exaggeration of the normal cervical lordosis. C2-C3: Mild facet arthropathy. Spinal canal is patent. C3-C4: Mild disc bulging with osteophytic ridging. Mild facet arthropathy. Mild bilateral bony foraminal narrowing. C4-C5: Disc osteophyte complex with mild central canal stenosis. Slight indentation on the LEFT ventral cervical cord. Moderate LEFT and mild RIGHT bony foraminal narrowing. Moderate facet arthropathy. C5-C6: Disc osteophyte complex with moderate facet arthropathy. Mild LEFT greater than RIGHT bony foraminal narrowing. Mild central canal stenosis. C6-C7: Mild disc bulging. Spinal canal is patent. Mild bilateral foraminal narrowing. Advanced LEFT facet arthropathy. C7-T1: Mild disc bulge with osteophytic ridging. Mild bilateral bony foraminal narrowing. Spinal canal is patent. Visualized brain stem structures: Normal. Prevertebral soft tissues: Normal. A few small disc protrusions in the upper thoracic spine. MR/MR cervical spin wo con* [id number] IMPRESSION: 1. Exaggeration of the normal cervical lordosis. 2. Mild central canal stenosis C4-C5 and C5-C6 with slight indentation of the cervical cord at C4-5 eccentric to the LEFT. 3. Mild to moderate bony foraminal narrowing described above of. 4. Moderate to advanced facet arthropathy C4-C5 C5-C6 and LEFT C6-7. 5. Visualized soft tissues are normal. Contrast-enhanced neck CT could be obta ined for better anatomic detail of the soft tissues if indicated
== END 2024-05-29 07:04 | disposition home or self-care (01) ==
PROVIDERS: PCP Nurse Practitioner Family; Visit Provider Nurse Practitioner Family
DX: M48.02 Spinal stenosis, cervical region (principal); R93.7 Abnormal findings on diagnostic imaging of other parts of musculoskeletal system; M47.892 Other spondylosis, cervical region; M50.31 Other cervical disc degeneration, high cervical region; M25.78 Osteophyte, vertebrae; M50.323 Other cervical disc degeneration at C6-C7 level; M50.33 Other cervical disc degeneration, cervicothoracic region; M48.03 Spinal stenosis, cervicothoracic region; M51.24 Other intervertebral disc displacement, thoracic region
CPT/HCPCS: 72141

== ENCOUNTER → 2024-06-12 08:56 | Outpatient (BNVA) | payer BC, MEDICAID, SELFPAY | PROVIDERS: PCP Nurse Practitioner Family; Visit Provider Nurse Practitioner Family | DX: Z12.5 Encounter for screening for malignant neoplasm of prostate (principal); Z13.6 Encounter for screening for cardiovascular disorders; K21.9 Gastro-esophageal reflux disease without esophagitis | CPT/HCPCS: 80053; 80061; 82607; 83036; 84443; 85025; G0103 ==

== ENCOUNTER → 2024-09-12 08:40 | Outpatient (BNVA) | payer BC, MEDICAID, SELFPAY | PROVIDERS: PCP Nurse Practitioner Family; Visit Provider Nurse Practitioner Family | DX: R73.03 Prediabetes (principal) | CPT/HCPCS: 80053; 80061; 83036; 85025 ==

== ENCOUNTER → 2024-09-27 14:57 | Outpatient (BNVA) | payer BC, MEDICAID, SELFPAY | PROVIDERS: PCP Nurse Practitioner Family; Visit Provider Nurse Practitioner Family | DX: R10.9 Unspecified abdominal pain (principal); R10.32 Left lower quadrant pain | CPT/HCPCS: 74018; 80053; 81000; 85025 ==

== ENCOUNTER 2024-09-28 10:49 | Outpatient (CLI) | payer BC, MEDICAID, SELFPAY ==
--- NOTE | 2024-09-28 11:00 | CT_ITS ---
WS: [id number] CT ABDOMEN PELVIS TECHNIQUE: Contrast-enhanced CT of the abdomen and pelvis with coronal and sagittal reformatted images. CLINICAL INFORMATION: R10.32 - Left lower quadrant pain COMPARISON: CT 03/08/2024 DLP: 333.[address] scans at [facility] use at least one of these dose optimization techniques: automated exposure control; mA and/or kV adjustment per patient size (includes targeted exams where dose is matched to clinical indication); or iterative reconstruction. FINDINGS: Lung bases are well aerated. A few tiny low-attenuation lesions in the liver likely hepatic cysts but too small to definitively characterize. These appear stable. Normal splenic enhancement. Tiny esophageal hiatal hernia. Diffuse gastric thickening with submucosal enhancement suspicious for gastritis and duodenitis. This can be followed up with endoscopy. Adrenal glands are normal. Normal renal parenchymal enhancement. No hydronephrosis. Normal pancreatic parenchymal enhancement. Celiac and SMA are patent. Normal portal vein and splenic vein. Normal gallbladder. Trace free fluid in the pelvis. Few sigmoid diverticuli. No evidence of acute diverticulitis. Tortuous sigmoid colon. No evidence of high-grade small or large bowel obstruction. Chronic spondylolysis L5-S1. CT/CT abdomen pelvis w con* [id number] IMPRESSION: 1. Postoperative changes distal sigmoid colon. 2. No evidence of high-grade small or large bowel obstruction. 3. Evidence of gastritis and duodenitis. This can be followed up with endoscop y. 4. No hydronephrosis in either kidney. 5. No other significant changes compared to previous.
[2024-09-28] MEDS: iohexol 350 mg/mL 500 mL Btl (per mL) IV (11:38)
== END 2024-09-28 10:50 | disposition home or self-care (01) ==
PROVIDERS: PCP Nurse Practitioner Family; Visit Provider Nurse Practitioner Family
DX: R10.32 Left lower quadrant pain (principal); K29.60 Other gastritis without bleeding; K29.80 Duodenitis without bleeding
CPT/HCPCS: 74177

== ENCOUNTER → 2024-10-05 10:02 | Outpatient (BNVA) | payer BC, MEDICAID, SELFPAY | PROVIDERS: PCP Nurse Practitioner Family; Visit Provider Nurse Practitioner Family | DX: R10.32 Left lower quadrant pain (principal) | CPT/HCPCS: 80048 ==